=== PATIENT | female | born 1975 | race Caucasian/White ===

== ENCOUNTER 2023-07-03 23:36 | Emergency (ER) | payer BC ==
--- OUTSIDE RECORDS SUMMARY | 2023-07-03 23:46 | XMS REPORT | Continuity of Care Document ---
:1975 Author Organization [facility] t Address [address] [facility] [address] [place] [id number] Care Team Providers Name Role Phone Asked, No Pcp Primary Care Physician Unavailable LUCINDA ALEXANDRE Attending Clinician Unavailable FOG_A_Provider Attending Clinician Unavailable Rochelle Benedict Attending Clinician Unavailable Sana ARMAS, Cara Galan Attending Clinician [phone] Bradly Mccormick NP, Marika Attending Clinician Provider, Unknown Attending Clinician Unavailable Aba ARMAS, Mel Carson Attending Clinician James ARMAS, Spring Guthrie Attending Clinician [phone] Amber SAMUEL, Adelia Medina Attending Clinician Kristopher Beltran DO Attending Clinician VIKI TIAN Attending Clinician Unavailable Viki Ramos Attending Clinician JARRED BLAIR Attending Clinician Unavailable Asael Nichole Attending Clinician NAVDEEP MAGANA Attending Clinician Unavailable Bernabe Loomis Attending Clinician FOG_A_Provider Admitting Clinician Unavailable LUCINDA ALEXANDRE Admitting Clinician Unavailable Payers Payer Name Policy Type Policy Number Effective Date Expiration Date S ource ALLIED BENEFIT [id number] 2019 00:00:00 [facility] [place] [id number] ADVANTAGE (HMO) [facility] [id number] 2021 00:00:00 Problems Condition Condition Condition Status Onset Resolution Last Treating Co mments Source Name Details Category Date Date Treatment Clinician Date 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 To REGEN-COV (monoclon al antibody infusion for COVID-19) Chest pain Chest pain Disease Active U nivers 05-06 ity of 00:00: [address] Branch Epigastric Epigastric Disease Active U nivers pain pain 05-06 ity of 00:00: [address] Branch Drug Drug Disease Active Univers hypersensi hypersensi 05-06 it y of tivity tivity 00:00: [address] Branch Abnormal Abnormal Disease Active Overview: Un yvrose finding on finding on 05-06 Formattin ity of lung lung 00:00: g of this [place] [facility] imaging 00 note Medical might be Branch different from the original. 05/05/21I MPRESSION Interval developme nt of multiple groundgla ss nodules and patchy/no dulargrou ndglass opacities bilateral ly as described above. It is not clear ifreceivi ng antibody cocktail has effected appearanc e and the spread of lungopaci ties in the setting of Covid 19 pneumonia . There are otherdiff erentials in addition to septic emboli and Covid 19 pneumonia , includeva sculitis. A remote possibili ty would be hemorrhag e in the setting ofpulmona ry microembo li. Tetrahydro Tetrahydro Disease Active Overview : Univers cannabinol cannabinol 05-06 Formattin ity of (THC) use (THC) use 00:00: g of this [place] disorder, disorder, 00 note Medi ayden mild, mild, might be Branch abuse abuse different from the original. + UDS on 05/05/21 Morbid Morbid Disease Active Univers obesity obesity 6-18 ity of with body with body [place] mass index 00 Me dical of of Branch 40.0-49.9 40.0-49.9 COVID-19 COVID-19 Disease Active Overview: Un yvrose virus virus 6-18 Formattin ity of infection infection 00:00: g of this [place] 00 note is Medical different Branch from the original. SARS-CoV- 2 NAAT (no units) Date Value Positive (A) Lump or Lump or Disease Active 2017-11 Univers mass in mass in 2-19 ity of breast breast 00:00: [place] 00 Medical Branch Pain Pain Disease Active 2017-11 Univers pelvic pelvic 2- ity of 00:00: [place] 00 Medical Branch Chronic Chronic Disease Active 2017-11 Univers back pain back pain 2-07 ity of 00:00: [place] 00 Medical Branch History of History of Disease Active 2017-11 U nivchristine suicide suicide 2-07 ity of attempt attempt 00:00: [place] 00 Medical Branch NUMBNESS NUMBNESS Diagnosis Active 2016-112017-10-30 Memoria IN LIMBS IN LIMBS 2-13 23:36:00 l Active 00:00: [place] 10/30/2017 00 [facility] Disease Active 2016-11 U deirdre katrina katrina 0-04 ity of management management [place] History of History of Disease Active 2016-11 U gasperers hypertensi hypertensi 0-04 it y of on on 00:00: [place] [facility] Branch History of History of Disease Active 2016-11 U gasperers diabetes diabetes 0-04 ity of mellitus mellitus 00:00: [place] 00 Medical Branch Class 2 Class 2 Disease Active 2016-11 Univers obesity obesity 0-04 ity of due to due to 00:00: [place] excess excess 00 Medical calories calories Branch with with serious serious comorbidit comorbidit y in adult y in adult History of History of Disease Active 2016-11 U gasperers anxiety anxiety 0-04 ity of 00:00: [place] 00 Medical Branch History of History of Disease Active 2016-11 U gasperers depression depression 0-04 it y of 00:00: [place] 00 Medical Branch History of History of Disease Active 2016-11 U nivers hysterecto hysterecto 0-04 it y of my my 00:00: [place] 00 Medical Branch 238.3 - 238.3 - Diagnosis Active 2013-03-20 [facility] 4-18 12:45:00 l EVERT B EVERT B 00:01: [place] Active 00 03/05/2013 OP[facility] [place] 611.72 - 611.72 - Diagnosis Active 2013-02-02 Memoria LUMP OR LUMP OR 2-25 18:13:00 l MASS IN MASS IN 00:01: [place] Active 00 01/12/2013 OP[facility] No known No known Disease Metho di active active st problems problems Hospit a l Diabetes Diabetes Problem Active 2020-07-17 Memoria mellitus mellitus 21:21:48 l (disorder) (disorder) He jazmyn Active Problem 07/17/2020 [facility] Hypertensi Hypertens Problem Active 2020-07-17 Memoria ve katrina 21:21:48 l disorder, disorder, Herm haylee systemic systemic arterial arterial (disorder) (disorder) Active Problem 07/17/2020 April [facility] History of Past Illness Condition Condition Condition Status Onset Resolution Last Treating Co mments Source Name Details Category Date Date Treatment Clinician Date Dorsalgia, Dorsalgia Problem 2016-112017-11-03 2017-11-03 Memoria unspecifie , 2-14 04:41:24 04:41:24 l d unspecifie 06:00: Jose n d 00 10/31/2017 7 [facility] Discharge Discharge Problem 2016-112017-11-03 2017-11-03 Memoria Diagnosis: Diagnosis: 2-14 04:41:24 04:41:24 l CERVICALGI CERVICALGI 06:00: He rmhaylee A A 00 10/31/2017 7 [facility] Allergies, Adverse Reactions, Alerts Allergy Allergy Status Severity Reaction(s) Onset Inactive Treating Comm ents Source Name Type Date Date Clinician BLUEBERR DRUG Active Hives Univers Y INGREDI 6-18 ity of 00:00: [place] 00 Medical Branch [place] Propensi Active Hives Univer s y ty to 6-18 ity of adverse 00:00: [place] reaction 00 Medical s Branch No Known No Known Active Memori a Medicati Medicati l on on [place] Allergie Allergie s s NO KNOWN Drug Active Univers ALLERGIE Class ity of S [facility] [place] [facility] Family History Family Member Diagnosis Comments Start Date Stop Date Source Natural father [facility] Natural mother Hy[facility] Paternal grandfather Colon cancer [facility] Paternal grandfather Diabetes Meth odist [facility] grandmother [facility] Social History Social Habit Start Date Stop Date Quantity Comments Source Gender identity 2022-04-10 Identifies as Method ist 11:10:14 female gender Hospital (finding) Sexual orientation Method ist Hospital History SDOH Hoahaoism Alcohol Frequency Hospita l History SDOH [place] Alcohol Std Drinks Hospit al History SDOH [place] Alcohol Binge Hospital Alcohol intake 2023-06-26 2023-06-26 Current drinker of Me thodist 00:00:00 00:00:00 alcohol (finding) Hospita l History of Social 2023-06-26 2023-06-[address] function 00:00:00 00:00:00 Hospital Tobacco use and 2023-05-30 2023-05-30 Former smokeless Met [facility]odist exposure 00:00:00 00:00:00 tobacco user Hospital Tobacco Comment 2023-05-30 2023-05-30 Quite few years Meth odist 00:00:00 00:00:00 ago Hospital History of tobacco 2023-05-25 Current smoker [facility] use 00:00:00 Hospital Exposure to 2022-10-14 2022-10-24 Not sure University of SARS-CoV-2 (event) 00:00:00 18:53:00 [facility] [place] [facility] Alcohol Comment 2020-11-01 2020-11-01 ocasionally Methodis t 00:00:00 00:00:00 Hospital Cigarettes smoked 2019-04-28 2019-04-28 Univers ity of current (pack per 00:00:00 00:00:00 ) - Reported Branch Sex Ass[birth year] At [birth year] Universit y of 00:00:00 00:00:00 [facility] [place] [facility] Smoking Status Start Date Stop Date Source Ex-smoker 2023-05-30 00:00:00 2023-[facility]-30 [facility] 2019-04-28 [facility] Social History 2017-10-31 08:02:47 [facility] Medications Ordered Filled Start Stop Current Ordering Indication Dosage Frequency Signature Comments Components Source Medication Medication Date Date Medication? Clinician (SIG) Name Name HYDROcodone 2022-0 2022- [place] [id number] 1{tbl} Q4H Take 1 Methodi -acetaminop 7-26 08-[address] hen ([place]) 00:00: 04:59 mouth Hosp donta 10-325 mg 00 :00 every 4 l per tablet (four) hours as needed for moderate pain for up to 10 days .acute pain. Max Daily Amount: 6 tablets rizatriptan 2022-0 Yes 10mg Take 1 Meth yamila (MAXALT) 10 7-14 tablet (10 st MG tablet 15:56: mg total) Hos samantha 35 by mouth l once as needed for migraine. May repeat in 2 hours if unresolved . Do not exceed 30 mg in 24 hours. furosemide 2022-0 Yes 20mg Q.5D Take 1 Metho di (LASIX) 20 7-14 tablet (20 st mg tablet 15:56: mg total) Hos samantha 35 by mouth 2 l (two) times a day. DULoxetine 2022-0 Yes 60mg QD Take 1 Metho di (CYMBALTA) 7-[address] 60 MG 15:56: (60 mg Hospita capsule 35 total) by l mouth daily. atomoxetine 2022-0 Yes 60mg QD Take 1 Meth yamila (STRATTERA) 7-[address] 60 MG 15:56: (60 mg Hospita capsule 35 total) by l mouth daily. cetirizine 2022-0 Yes 10mg QD Take 1 Metho di (ZyrTEC) 10 7-14 tablet (10 st MG tablet 15:56: mg total) Hos samantha 35 by mouth l daily. traZODone 2022-0 Yes 50mg QD Take 1 Method i (DESYREL) 7-14 tablet (50 st 50 MG 15:56: mg total) Hospita tablet 35 by mouth l nightly. HYDROcodone 2022-0 Yes [id number] 1{tbl} Q6H Take 1 M ethodi -acetaminop 7-[address] hen (NORCO) 15:56: mouth Hospi ta 7.5-325 mg 35 every 6 l per tablet (six) hours as needed for moderate pain .acute pain. UNABLE TO Yes Vitamin d3 Me arriaza FIND 05-31 10,[address] 15:56: 250 mcg Hospita [address] fernandez not take the morning of surgery ascorbic Yes Take by Method i acid -[address] (VITAMIN C 15:56: Hospita ORAL) 35 l docosahexae Yes Take by [place] noic 7-[address] acid/epa 15:56: Hospita (FISH OIL 35 l ORAL) methocarbam 2022- No 750mg Q.25D Take 1 M ethodi oL 05-31-[address] (Robaxin-75 00:00: 04:59 (750 mg Ho spita 0) 750 MG 00 :00 total) by l tablet mouth 4 (four) times a day for 30 days. HYDROcodone 2022- [place] [id number] 1{tbl} Q4H Take 1 Methodi -acetaminop 05-[address] rivera ([place]) 00:00: 04:59 mouth Hosp donta 10-325 mg 00 :00 every 4 l per tablet (four) hours as needed for moderate pain for up to 10 days .acute pain. Max Daily Amount: 6 tablets cholecalcif 2022- No Take by [facility] desirae, 05-[address] vitamin D3, 11:46: 00:00 Hospi ta (Vitamin 59 :00 l D3) 10 mcg (400 unit) capsule melatonin 3 2022- No Take by Mt thodi mg tablet 05-[address] 11:36: 00:00 needed for Hospit a 07 :00 sleep. l diphenhydra 2022- No Take by [facility] mine HCl 05-[address] (BENADRYL 11:35: 00:00 needed. Hosp donta ORAL) 16 :00 l fremanezuma Yes INJECT Meth yamila b-vfrm 6- 225MG st (Ajovy 00:00: UNDER THE Hospit a Autoinjecto 00 SKIN EVERY l r) 225 28 DAYS. mg/1.5 mL auto-inject or diazePAM 2022- No 10mg Q6H Take 2 Method i (Valium) 5 6- 06-[address] MG tablet 00:00: 00:00 (10 mg Hospi ta 00 :00 total) by l mouth every 6 (six) hours as needed for anxiety. predniSONE 2022- No 20mg QD Take 1 Meth yamila (DELTASONE) 04-22 06-11 tablet (20 s t 20 mg 00:00: 04:59 mg total) Hospit a tablet 00 :00 by mouth l daily for 5 days. acetaminoph 2021-11 No 1000mg 1,000 mg, Univers en 12-26 Oral, ity of (TYLENOL) 02:00: 01:35 ONCE, 1 [place] tablet 00 :00 dose, On Medical 1,000 mg Wed Branch 10/24/22 at 1999, RADHA ketorolac 2021-11 No 30mg 30 mg, Unive rs (TORADOL) 12-26 Intramuscu ity of injection 02:00: 01:36 lar, ONCE, [place] 30 mg 00 :00 1 dose, On Medical Wed Branch 10/24/22 at 1999, Routine ubrogepant Yes 50mg Take 1 Metho di (Ubrelvy) 8-05 tablet (50 st 50 mg 00:00: mg total) Hospita tablet 00 by mouth l tablet as needed for migraine. fremanezuma 2022- No 225mg Q28D Inject 225 Methodi b-vfrm 225 06-22 06-[address] mg/1.5 mL 00:00: 00:00 the skin Hos samantha auto-inject 00 :00 every 28 l or days. gabapentin 0 Yes 1-2 tabs Met hodi (Neurontin) 2-[address] 600 mg 00:00: times Hospita tablet 00 daily l gabapentin 0 Yes 600mg Take 600 Un yvrose 600 mg 6-22 mg by ity of tablet 13:04: mouth 2 [place] 42 (two) Medical times Branch daily. albuterol Yes [id number] 2{puff} Inhale 2 Univers 90 6-22 Puffs ity of mcg/actuati 00:00: every 6 [place] as on inhaler 00 (six) Medical hours as Branch needed for Wheezing, Shortness of Breath, Bronchospa sm or Chest tightness. pantoprazol Yes [id number] 40mg Take 1 Univers e 40 mg EC 6-22 tablet by ity of tablet 00:00: mouth [place] 00 daily. Medical Branch benzonatate Yes [id number] 200mg Take 1 Univers 200 mg 6-22 capsule by ity of capsule 00:00: mouth 3 [place] 00 (three) Medical times Branch daily as needed for Cough. proMETHazin Yes [id number] 25mg Take 1 Univers e 25 mg 6-22 tablet by ity of tablet 00:00: mouth [place] 00 every 6 Medical (six) Branch hours as needed for Nausea and Vomiting (N/V). diphenhydra Yes Take by Met hodi mine HCl 1-[address] (BENADRYL 19:15: needed. Hospi ta ORAL) 41 l melatonin 3 Yes Take by Met hodi mg tablet 1-[address] 19:15: needed for Hospita 41 sleep. l rizatriptan 2021- No 10mg Take 1 Met hodi (Maxalt) 10 -06 -07 tablet (10 s t MG tablet 00:00: 05:59 mg total) Ho spita 00 :00 by mouth l once as needed for migraine. May repeat in 2 hours if unresolved . Do not exceed 30 mg in 24 hours. fremanezuma 2019-11 Yes 225mg Q28D Inject 225 Methodi b-vfrm 225 2-[address] mg/1.5 mL 00:00: the skin Hosp donta auto-inject 00 every 28 l or days. fremanezuma 2019-11 Yes 225mg Q28D Inject 225 Methodi b-vfrm 225 2-[address] mg/1.5 mL 00:00: the skin Hosp donta auto-inject 00 every 28 l or days. galcanezuma 2019-11 Yes 120mg Q28D Inject 120 Methodi b-gnlm 2-[address] (Emgality 00:00: the skin Hosp donta Pen) 120 00 every 28 l mg/mL pen days. Start with 2 injections then 1 every 28 days gabapentin 2019-11 Yes 1-2 tabs Met hodi (Neurontin) 2-[address] 600 mg 00:00: times Hospita tablet 00 daily l galcanezuma 2019-11- No 120mg Q28D Inject 120 Methodi b-gnlm 2-15 06-[address] (Emgality 00:00: 00:00 the skin Hos samantha Pen) 120 00 :00 every 28 l mg/mL pen days. Start with 2 injections then 1 every 28 days rizatriptan 2019-11- No 10mg Take 1 Met hodi (Maxalt) 10 2-15 12-16 tablet (10 s t MG tablet 00:00: 05:59 mg total) Ho spita 00 :00 by mouth l once as needed for migraine. May repeat in 2 hours if unresolved . Do not exceed 30 mg in 24 hours. hydrOXYzine Yes [id number] 25mg Take 1 Univers 25 mg 4-20 tablet by ity of tablet 00:00: mouth [place] 00 every 6 Medical (six) Branch hours as needed for Itching. Diazepam 2016-11 Yes 2 mg = 1 Mem oria MG Oral 2-14 tab, PO, l Tablet 08:15: TID, X 7 [place] [Valium] 00 day, # 19 tab, 0 Refill(s) Diazepam 2 2016-11 Yes 2 mg = 1 Mem oria MG Oral 2-14 tab, PO, l Tablet 08:15: TID, X 7 [place] [Valium] 00 day, # 19 tab, 0 Refill(s) Diazepam 2 2016-11 Yes 2 mg = 1 Mem oria MG Oral 2-14 tab, PO, l Tablet 08:15: TID, X 7 [place] [Valium] 00 day, # 19 tab, 0 Refill(s) Diazepam 2 2016-11 Yes 2 mg = 1 Mem oria MG Oral 2-14 tab, PO, l Tablet 08:15: TID, X 7 [place] [Valium] 00 day, # 19 tab, 0 Refill(s) Diazepam 2 2016-11 Yes 2 mg = 1 Mem oria MG Oral 2-14 tab, PO, l Tablet 08:15: TID, X 7 [place] [Valium] 00 day, # 19 tab, 0 Refill(s) Diazepam 2 2016-11 Yes 2 mg = 1 Mem oria MG Oral 2-14 tab, PO, l Tablet 08:15: TID, X 7 [place] [Valium] 00 day, # 19 tab, 0 Refill(s) Diazepam 2 2016-11 Yes 2 mg = 1 Mem oria MG Oral 2-14 tab, PO, l Tablet 08:15: TID, X 7 [place] [Valium] 00 day, # 19 tab, 0 Refill(s) Diazepam 2 2016-11 Yes 2 mg = 1 Mem oria MG Oral 2-14 tab, PO, l Tablet 08:15: TID, X 7 [place] [Valium] 00 day, # 19 tab, 0 Refill(s) Diazepam 2 2016-11 Yes 2 mg = 1 Mem oria MG Oral 2-14 tab, PO, l Tablet 08:15: TID, X 7 [place] [Valium] 00 day, # 19 tab, 0 Refill(s) Diazepam 2 2016-11 Yes 2 mg = 1 Mem oria MG Oral 2-14 tab, PO, l Tablet 08:15: TID, X 7 [place] [Valium] 00 day, # 19 tab, 0 Refill(s) Acetaminoph 2016-11 Yes 1 tab, PO, Memoria en 300 MG / 2-14 Q6H, PRN l Codeine 08:14: Pain, X 3 [place] nn Phosphate 00 day, # 13 30 MG Oral tab, 0 Tablet Refill(s) [Tylenol with Codeine #3] Acetaminoph 2016-11 Yes 1 tab, PO, Memoria en 300 MG / 2-14 Q6H, PRN l Codeine 08:14: Pain, X 3 [place] nn Phosphate 00 day, # 13 30 MG Oral tab, 0 Tablet Refill(s) [Tylenol with Codeine #3] Acetaminoph 2016-11 Yes 1 tab, PO, Memoria en 300 MG / 2-14 Q6H, PRN l Codeine 08:14: Pain, X 3 [place] nn Phosphate 00 day, # 13 30 MG Oral tab, 0 Tablet Refill(s) [Tylenol with Codeine #3] Acetaminoph 2016-11 Yes 1 tab, PO, Memoria en 300 MG / 2-14 Q6H, PRN l Codeine 08:14: Pain, X 3 [place] nn Phosphate 00 day, # 13 30 MG Oral tab, 0 Tablet Refill(s) [Tylenol with Codeine #3] Acetaminoph 2016-11 Yes 1 tab, PO, Memoria en 300 MG / 2-14 Q6H, PRN l Codeine 08:14: Pain, X 3 [place] nn Phosphate 00 day, # 13 30 MG Oral tab, 0 Tablet Refill(s) [Tylenol with Codeine #3] Acetaminoph 2016-11 Yes 1 tab, PO, Memoria en 300 MG / 2-14 Q6H, PRN l Codeine 08:14: Pain, X 3 [place] nn Phosphate 00 day, # 13 30 MG Oral tab, 0 Tablet Refill(s) [Tylenol with Codeine #3] Acetaminoph 2016-11 Yes 1 tab, PO, Memoria en 300 MG / 2-14 Q6H, PRN l Codeine 08:14: Pain, X 3 [place] nn Phosphate 00 day, # 13 30 MG Oral tab, 0 Tablet Refill(s) [Tylenol with Codeine #3] Acetaminoph 2016-11 Yes 1 tab, PO, Memoria en 300 MG / 2-14 Q6H, PRN l Codeine 08:14: Pain, X 3 [place] nn Phosphate 00 day, # 13 30 MG Oral tab, 0 Tablet Refill(s) [Tylenol with Codeine #3] Acetaminoph 2016-11 Yes 1 tab, PO, Memoria en 300 MG / 2-14 Q6H, PRN l Codeine 08:14: Pain, X 3 [place] nn Phosphate 00 day, # 13 30 MG Oral tab, 0 Tablet Refill(s) [Tylenol with Codeine #3] Acetaminoph 2016-11 Yes 1 tab, PO, Memoria en 300 MG / 2-14 Q6H, PRN l Codeine 08:14: Pain, X 3 [place] nn Phosphate 00 day, # 13 30 MG Oral tab, 0 Tablet Refill(s) [Tylenol with Codeine #3] Motrin 600 2016-11 Yes 600 mg = 1 M emoria mg oral 2-14 tab, PO, l tablet 08:13: Q6H, PRN [place] 00 Pain, take with food, # 30 tab, 0 Refill(s) Motrin 600 2016-11 Yes 600 mg = 1 M emoria mg oral 2-14 tab, PO, l tablet 08:13: Q6H, PRN [place] 00 Pain, take with food, # 30 tab, 0 Refill(s) Motrin 600 2016-11 Yes 600 mg = 1 M emoria mg oral 2-14 tab, PO, l tablet 08:13: Q6H, PRN [place] 00 Pain, take with food, # 30 tab, 0 Refill(s) Motrin 600 2016-11 Yes 600 mg = 1 M emoria mg oral 2-14 tab, PO, l tablet 08:13: Q6H, PRN [place] 00 Pain, take with food, # 30 tab, 0 Refill(s) Motrin 600 2016-11 Yes 600 mg = 1 M emoria mg oral 2-14 tab, PO, l tablet 08:13: Q6H, PRN [place] 00 Pain, take with food, # 30 tab, 0 Refill(s) Motrin 600 2016-11 Yes 600 mg = 1 M emoria mg oral 2-14 tab, PO, l tablet 08:13: Q6H, PRN [place] 00 Pain, take with food, # 30 tab, 0 Refill(s) Motrin 600 2016-11 Yes 600 mg = 1 M emoria mg oral 2-14 tab, PO, l tablet 08:13: Q6H, PRN [place] 00 Pain, take with food, # 30 tab, 0 Refill(s) Motrin 600 2016-11 Yes 600 mg = 1 M emoria mg oral 2-14 tab, PO, l tablet 08:13: Q6H, PRN [place] 00 Pain, take with food, # 30 tab, 0 Refill(s) Motrin 600 2016-11 Yes 600 mg = 1 M emoria mg oral 2-14 tab, PO, l tablet 08:13: Q6H, PRN [place] 00 Pain, take with food, # 30 tab, 0 Refill(s) Motrin 600 2016-11 Yes 600 mg = 1 M emoria mg oral 2-14 tab, PO, l tablet 08:13: Q6H, PRN [place] 00 Pain, take with food, # 30 tab, 0 Refill(s) Immunizations Ordered Filled Immunization Date Status Comments Sourc e Immunization Name Name TDAP 2017-08-21 Completed [facility] 00:00:00 [facility] [place] [facility] Vital Signs Vital Name Observation Time Observation Value Comments Source Systolic blood 2022-10-25 00:55:00 146 mm[Hg] [facility] Diastolic blood 2022-10-25 00:55:00 86 mm[Hg] [facility] Heart rate 2022-10-25 00:55:00 88 /min [facility] Body temperature 2022-10-25 00:55:[address] [facility] Res[facility] rate 2022-10-25 00:55:00 20 /min [facility] Body height 2022-10-25 00:55:00 170.2 cm [facility] Body weight 2022-10-25 00:55:00 108.863 kg [facility] BMI 2022-10-25 00:55:00 37.59 kg/m2 [facility] Oxygen saturation in 2022-10-25 00:55:00 96 /min [facility] Arterial blood by [facility] Pulse oximetry [place] Heart rate 2023-05-31 19:59:00 78 /min [facility] Respiratory rate 2023-05-31 18:59:00 20 /min [facility] Systolic blood 2023-05-31 17:30:55 112 mm[Hg] Method [facility] pressure Diastolic blood 2023-05-31 17:30:55 67 mm[Hg] [facility] pressure Body temperature 2023-05-31 17:30:[address] [facility] Oxygen saturation in 2023-05-31 17:30:55 98 /min [facility] Arterial blood by Pulse oximetry Body height 2023-05-30 15:48:00 170.2 cm [facility] Body weight 2023-05-30 15:48:00 115.667 kg [facility] BMI 2023-05-30 15:48:00 39.94 kg/m2 [facility] Systolic (mm Hg) 2017-10-31 08:03:00 Freddie rial [place] Diastolic (mm Hg) 2017-10-31 08:03:00 Mem orial [place] Respitory Rate 2017-10-31 08:03:00 Yumiko rodriguez [place] Temperature Oral (F) 2017-10-31 08:03:00 98.2 F [facility] [place] Temperature Oral (F) 2017-10-31 02:09:00 98.1 F [facility] [place] Weight 2017-10-31 02:09:00 Memorial [place] Heart Rate 2017-10-31 02:09:00 [facility] [place] Systolic (mm Hg) 2017-10-31 02:09:00 Freddie rial [place] Diastolic (mm Hg) 2017-10-31 02:09:00 Mem orial [place] Respitory Rate 2017-10-31 02:09:00 Memori al [place] Procedures Procedure Date / Time Performing Clinician Source Performed MRI CERVICAL SPINE WO 2023-06-27 16:45:00 Anuj [facility] CONTRAST XR LUMBAR SPINE 2 OR 3 VW 2023-06-21 18:24:[address] [facility] [place] [place] BASIC METABOLIC PANEL 2023-05-31 11:47:00 [facility] WITH PLATELET AND 2023-05-31 11:47:00 [facility] DIFFERENTIAL Kwanbena ESTIMATED GFR 2023-05-31 11:47:00 [facility] HEMOGLOBIN 2023-05-31 11:46:00 [facility] [place] POC GLUCOSE 2023-05-31 01:25:00 [facility] [place] > 1 HOUR 2023-05-31 00:30:[address] [facility] [place] [place] > 1 HOUR 2023-05-30 22:50:[address] [facility] [place] [place] ARTERIAL LINE 2023-05-30 21:53:51 Wiley Patel spital ANESTHESIA INTUBATION 2023-05-30 21:08:00 Jorge [facility] FUSION,LUMBAR,XLIF,WITH 2023-05-30 21:00:00 Anuj [facility] POSTERIOR FUSION HC NERVE BLOCK ERECTOR 2023-05-30 19:11:14 Davion Cruz [facility] SPINAE SURGICAL PATHOLOGY REQUEST 2023-05-30 13:37:00 [facility] ECG PRE/POST OP 2023-05-15 16:33:49 [facility] 2023-05-15 16:26:00 [facility]INALYSIS SCREEN AND 2023-05-15 16:26:00 [facility], WITH REFLEX TO CULTURE CBC WITH PLATELET AND 2023-05-15 16:00:00 [facility] DIFFERENTIAL COMPREHENSIVE METABOLIC 2023-05-15 16:00:00 [facility] HEMOGLOB[facility] A1C 2023-05-15 16:00:00 [facility] ESTIMATED GFR 2023-05-15 16:00:00 [facility] PARTIAL THROMBOPLASTIN 2023-05-15 16:00:00 [facility] TIME (PTT) PROTHROMBIN TIME WITH INR 2023-05-15 16:00:00 [facility] XR SPINE SCOLIOSIS 2-3 2023-05-07 18:14:46 [facility] VIEWS XR LUMBAR SPINE AP LATERAL 2023-05-07 18:13:05 [facility] FLEXION AND EXTENSION CT LUMBAR SPINE WO 2023-05-07 17:44:35 [facility] CONTRAST MRI LUMBAR SPINE W WO 2023-04-25 04:39:00 [facility] CONTRAST [place] TYPE AND SCREEN 2023-04-25 00:17:00 [facility] [place] COMPREHENSIVE METABOLIC 2023-04-24 21:46:00 [facility] PANEL [place] CBC WITH PLATELET AND 2023-04-24 21:46:[address] [facility] DIFFERENTIAL [place] PROTHROMBIN TIME WITH INR 2023-04-24 21:46:00 [facility] [place] PARTIAL THROMBOPLASTIN 2023-04-24 21:46:00 [facility] TIME (PTT) [place] ESTIMATED GFR 2023-04-24 21:46:00 Thanhdung Zacarias [facility] [place] XR LUMBAR SPINE 2 OR 3 VW 2023-04-23 00:29:26 Kristopher Beltran [facility] XR KNEE 1 OR 2 VW RIGHT 2023-04-23 00:29:10 Kristopher Beltran [facility] XR KNEE 1 OR 2 VW LEFT 2023-04-23 00:28:51 Kristopher Beltran [facility] MRI SPINE EXTERNAL STUDY 2023-02-15 17:15:00 Lucinda Alexandre [facility] NOTICE OF PRIVACY 2022-10-25 00:40:30 Doctor Unassigned, [facility] PRACTICES [facility] CONSENT/REFUSAL FOR 2022-10-25 00:38:39 Doctor Unassigned, [facility] DIAGNOSIS AND TREATMENT [facility] Cholecystectomy [facility] Hernia repair [facility] Plan of Care Planned Activity Planned Date Details Comments Source Future Scheduled 2023-07-01 Screening for [facility] Test 14:43:38 malignant neoplasm of colon (procedure) [code = 741137845] Future Scheduled 2023-07-01 Screening for [facility] Test 14:43:38 malignant neoplasm of colon (procedure) [code = 065952875] Future Scheduled 2023-07-01 Screening for [facility] Test 14:43:38 malignant neoplasm of colon (procedure) [code = 695230044] Future Scheduled 2023-07-01 COVID-19 VACCINE [facility] Test 14:43:38 (#1) [code = COVID-19 VACCINE (#1)] Future Scheduled 2023-07-01 Hepatitis C [facility]ital Test 14:43:38 screening (procedure) [code = 380052537] Future Scheduled 2023-07-01 Screening for [facility] Test 14:43:38 malignant neoplasm of cervix (procedure) [code = 867291347] Future Scheduled 2023-07-01 BREAST CANCER [facility] Test 14:43:38 SCREENING [code = BREAST CANCER SCREENING] Future Scheduled 2023-07-01 Screening for [facility] Test 14:43:38 malignant neoplasm of colon (procedure) [code = 025204806] Future Scheduled 2023-07-01 Screening for [facility] Test 14:43:38 malignant neoplasm of colon (procedure) [code = 932806254] Future Scheduled 2023-07-01 [facility] 14:43:38 [code = INFLUENZA VACCINE] Future Scheduled 2021-09-20 [facility] Test 18:04:01 (1) [code = COVID-19 VACCINE (1)] Future Scheduled 2021-09-20 [facility] Test 18:04:01 screening (procedure) [code = 972459992] Future Scheduled 2021-09-20 [facility] Test 18:04:01 malignant neoplasm of cervix (procedure) [code = 650624756] Future Scheduled 2021-09-20 [facility]ACCINE [facility] Test 18:04:01 [code = INFLUENZA VACCINE] Encounters Start End Encounter Admission Attending Care Care Encounter Source Date/Time Date/Time Type Type Clinicians Facility Department ID 2021-09-18 Emergency [facility] [id number] Univers 02:06:51 ity [facility] 2021-09-18 Emergency [facility] [id number] Univers 00:47:15 ity [facility] 2021-09-14 Emergency [facility] [id number] Univers 23:52:15 ity [facility] 2021-09-14 Emergency [facility] [id number] Univers [facility] 2023-06-27 2023-06-27 [facility] ANUJLUCINDA SOLANO [facility] [id number] [place] 00:00:00 00:00:[address] 2023-06-21 2023-06-21 [facility] Lucinda Alexandre 1.2.840.1 [id number] 2 [id number] Methodi 12:45:00 23:59:00 Encounter Amadou 98184.1.[address] 3.430.2.7 Hospit a .3.547596 l .8 2023-06-21 2023-06-21 Office AnujLucinda solano 1.2.840.1 [id number] 21 [id number] [facility]i 14:45:00 15:11:22 Visit Amadou 58458.1.[address] 3.430.2.7 Hospit a .3.131197 l .8 2023-06-21 2023-06-21 Outpatient LUCINDA ALEXANDRE [facility] [id number] [place] 00:00:00 00:00:[address] 2023-06-21 2023-06-21 Outpatient LUCINDA ALEXANDRE [facility] [id number] [place] 00:00:00 00:00:[address] 2023-06-19 2023-06-19 Orders Lucinda Alexandre 1.2.840.1 [id number] 21 [id number] Methodi 00:00:00 00:00:00 Only Amadou 27276.1.[address] 3.430.2.7 Hospit a .3.941929 l .8 2023-06-12 2023-06-12 Orders Lucinda Alexandre 1.2.840.1 [id number] 21 [id number] [facility]i 00:00:00 00:00:00 Only Amadou 37942.1.[address] 3.430.2.7 Hospit a .3.023770 l .8 2023-06-04 2023-06-04 Outpatient FOG_A_Provi AOSM AOSM 656 [id number] Tonie 00:00:00 00:00:00 fabrizio [id number] Orthop e dic [facility] e 2023-06-03 2023-06-03 Patient Jak, 1.2.840.1 [id number] [facility]i 00:00:00 00:00:00 Outreach Rochelle 66824.1.1 278 s t 3.430.2.7 Hospit a .3.115326 l .8 2023-05-30 2023-05-31 Hospital Lucinda Alexandre 1.2.840.1 [id number] 2 [id number] Methodi 10:22:00 15:56:00 Encounter Amadou 81737.1.[address] 3.430.2.7 Hospit a .3.789597 l .8 2023-05-30 2023-05-31 Inpatient LUCINDA ALEXANDRE [facility] Hos [id number] [place] 00:00:00 00:00:[address] 2023-05-30 2023-05-30 Anesthesia Cara Hood 1.2.840 .1 [id number] [facility] 16:00:00 20:22:00 Event Bradly Mccormick Marika 97113.1.[address] 3.430.2.7 Hospit a .3.268413 l .8 2023-05-30 2023-05-30 Surgery Lucinda Alexandre 1.2.840.1 [id number] 21 [id number] Methodi 12:35:00 16:35:[address] 3.430.2.7 Hospit a .3.958821 l .8 2023-05-16 2023-05-16 Documentat Provider, 1.2.840.1 [id number] 2 [id number] Methodi 00:00:00 00:00:00 ion María 22879.1.[address] 3.430.2.7 Hospit a .3.250437 l .8 2023-05-15 2023-05-15 Pre-Admiss Lucinda Alexandre 1.2.840.1 [id number] Methodi 11:00:00 12:00:00 ion Amadou 73160.1.[address] Testing 3.430.2.7 Hospit a .3.579498 l .8 2023-05-15 2023-05-15 Outpatient LUCINDA ALEXANDRE [facility] [id number] [place] 00:00:00 00:00:[address] 2023-05-12 2023-05-12 Zoila Deluna 1.2.840.1 [id number] Methodi 00:00:00 00:00:00 Mel Carson 95973.1.[address] 3.430.2.7 Hospit a .3.811211 l .8 2023-05-07 2023-05-07 Hospital Lucinda Alexandre 1.2.840.1 [id number] 2 [id number] Methodi 12:15:00 23:59:00 Encounter Amadou 56502.1.[address] 3.430.2.7 Hospit a .3.699988 l .8 2023-05-07 2023-05-07 Office Lucinda Alexandre 1.2.840.1 [id number] 21 [id number] Methodi 14:30:00 15:12:14 Visit Amadou 48882.1.[address] 3.430.2.7 Hospit a .3.115999 l .8 2023-05-07 2023-05-07 [facility] Lucinda Alexandre 1.2.840.1 [id number] 2 [id number] Methodi 12:00:00 12:14:00 Encounter Amadou 80457.1.[address] 3.430.2.7 Hospit a .3.352802 l .8 2023-05-07 2023-05-07 [facility] Lucinda Alexandre 1.2.840.1 [id number] 2 [id number] Methodi 11:25:57 11:59:00 Encounter Amadou 76143.1.[address] 3.430.2.7 Hospit a .3.507704 l .8 2023-05-07 2023-05-07 Outpatient ANUJ, LUCINDA [facility] [id number] [place] 00:00:00 00:00:[address] 2023-05-07 2023-05-07 Outpatient ANUJLUCINDA [facility] [id number] [id number] [place] 00:00:00 00:00:[address] 2023-05-07 2023-05-07 Outpatient ANUJ, LUCINDA [facility] [id number] [place] 00:00:00 00:00:[address] 2023-05-07 2023-05-07 Outpatient ANUJ, LUCINDA [facility] [id number] [place] 00:00:00 00:00:[address] 2023-04-24 2023-04-25 Emergency James, 1.2.840.1 [id number] Methodi 15:30:00 03:07:[address] [place] 3.430.2.7 Hospit a .3.358572 l .8 2023-04-24 2023-04-25 [facility] [id number] 555 [place] 00:00:00 00:00:00 SPRING [address] 2023-04-24 2023-04-24 Travel 1.2.840.1 1.2.410.083 8273 [id number] Methodi 00:00:00 00:00:[address] 3.430.2.7 0.2.7.3.698 Ho spita .3.894844 084.8 l .8 2023-04-24 2023-04-24 Documentat Amber, 1.2.840.1 [id number] 2 [id number] Methodi 00:00:00 00:00:[address] girish Medina [address]001.1.[address] 3.430.2.7 Hospit a .3.335616 l .8 2023-04-22 2023-04-22 [facility], 1.2.840.1 [id number] 2099 [id number] Methodi 17:48:00 21:06:00 Kristopher Anderson 71639.1.[address] 3.430.2.7 Hospit a .3.888688 l .8 2023-04-22 2023-04-22 [facility] [id number] [place] [address] 00:00:00 00:00:[address]RI[address]HER [address] 2023-04-22 2023-04-22 Travel 1.2.840.1 1.2.261.563 0332 [id number] Methodi 00:00:00 00:00:[address] 3.430.2.7 0.2.7.3.698 Ho spita .3.040117 084.8 l .8 2023-04-16 2023-04-16 [facility] Lucinda Alexandre 1.2.840.1 [id number] 2 [id number] Methodi 13:35:45 23:59:00 Encounter Amadou 11287.1.[address] 3.430.2.7 Hospit a .3.283983 l .8 2023-04-16 2023-04-16 [facility] Lucinda Alexandre 1.2.840.1 [id number] 21 [id number] Methodi 12:00:00 13:32:33 Visit Amadou 91584.1.[address] 3.430.2.7 Hospit a .3.995184 l .8 2023-04-16 2023-04-16 Outpatient LUCINDA ALEXANDRE [facility] [id number] [place] 00:00:00 00:00:[address] 2023-04-16 2023-04-16 Outpatient LUCINDA ALEXANDRE [facility] [id number] [place] 00:00:00 00:00:[address] 2023-04-16 2023-04-16 Travel 1.2.840.1 1.2.731.565 9751 [id number] Methodi 00:00:00 00:00:[address] 3.430.2.7 0.2.7.3.698 Ho spita .3.182708 084.8 l .8 2023-04-08 2023-04-08 Travel 1.2.840.1 1.2.776.108 5631 386771 Methodi 00:00:00 00:00:[address] 3.430.2.7 0.2.7.3.698 Ho spita .3.405488 084.8 l .8 2023-04-02 2023-04-02 Travel 1.2.840.1 1.2.258.869 7475 165794 Methodi 00:00:00 00:00:[address] 3.430.2.7 0.2.7.3.698 Ho spita .3.781796 084.8 l .8 2022-10-24 2022-10-24 Emergency X RIDDLE, [facility] ERT [id number] Univers 18:57:00 20:04:00 VIKI [facility]es [facility] 2022-10-24 2022-10-24 Emergency [place], [facility] 1.2.925.[id number] [facility] 18:57:00 20:04:00 Viki GLORIA 350.1.13.10 AshtynCLEARSKY [facility] 4.2.7.2.686 [facility] [id number] [place] [address] [place] 2022-06-22 2022-06-22 Outpatient ABA [facility] [id number] [place] 00:00:00 00:00:00 MEL 647 Method i 2021 2021 Outpatient R JOHNNIE [facility] [id number] Univers 15:30:00 15:30:00 JARRED [facility] 2020-12-06 2020-12-06 Outpatient R [facility] [id number] Univers 14:15:00 14:15:00 [facility] 2020-11-01 2020-11-01 Outpatient ABA [facility] [id number] [place] 00:00:00 00:00:00 MEL 985 Method i 2020-11-01 2020-11-01 Outpatient ABA [facility] [id number] [place] 00:00:00 00:00:00 MEL 111 Method i 2020-07-15 2020-07-15 Ambulatory nullFlavo MNA [id number] [facility] 15:30:00 15:30:00 Pre-Reg r Neurology 00 l [place] 2020-07-15 2020-07-15 Ambulatory nullFlavo MNA [id number] [facility] 15:30:00 15:30:00 Pre-Reg r Neurology 00 l [place] 2020-07-15 2020-07-15 Outpatient MHIE MHIE [id number] [facility] 10:30:00 10:30:00 00 l [place] 2020-07-15 2020-07-15 [id number] 10:30:00 10:30:00 Asael 00 Fran 2020-05-17 2020-05-17 Outpatient R [place], [facility] [id number] Univers 09:30:00 09:30:00 NAVDEEP [facility] 2020-03-07 2020-03-07 Outpatient R [facility] [id number] Univers 16:40:00 16:40:00 [facility] 2020-02-07 2020-02-07 Outpatient R [facility] [id number] Univers 15:45:00 15:45:00 [facility] 2017-10-31 2017-10-31 Emergency nullFlavo [facility] [id number] [facility] 01:46:00 08:57:00 r Kareem 00 l [facility] 2017-10-31 2017-10-31 Emergency [facility] [id number] Mem[facility] 01:46:00 08:57:00 r Kareem 00 l [facility] 2017-10-30 2017-10-31 Out[id number] 19:46:00 02:57:00 Daeun 00 2016-05-10 2016-05-11 Inpatient [facility] [id number] [place] [address] 00:00:00 00:00:[address] 2013-03-05 2013-03-05 OD MHIE MHIE [id number] [facility] 10:15:00 23:59:00 02 [place] 2013-03-05 2013-03-05 OD MHIE MHIE [id number] [facility] 10:15:00 23:59:00 02 Kareem 2013-01-21 2013-01-21 Outpatient MHIE MHIE [id number] [facility] 07:58:00 23:59:00 01 [place] 2013-01-21 2013-01-21 Outpatient MHIE MHIE [id number] [facility] 07:58:00 23:59:00 01 [place] Results Test Description Test Time Test Comments Results Result Comments Source Surgical pathology request 2023-06-07 20:01:52 Test Item Value Reference Range Interpretation Comme nts Case number (test code = [id number]) [id number] Surgical pathology report (test code = See link below for PDF Lab R eport 0742) Result status (test code = 7261803) This is Final Report for [id number] [facility] [id number] 01:27:00 Test Item Value Reference Range Interpretation Comments POC glucose (test code = 120 mg/dL 65-99 H Ope rator Name: Leydi [id number] Toro ID: [id number] able: [facility] 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 Interpretation (test Abnormal code = 69359-9) [facility] Pre/Post [id number] 17:51:36 Test Item Value Reference Range Interpretation Comments Ventricular rate (test 87 code = 253) Atrial rate (test code 87 = 255) LA interval (test code 170 = 266) QRSD interval (test 86 code = 260) QT interval (test code 378 = 264) QTC interval (test code 454 = 265) P axis 1 (test code = 55 267) QRS axis 1 (test code = -42 268) T wave axis (test code 44 = 270) EKG impression (test Normal sinus code = 273) rhythm-Possible Left atrial enlargement-Left axis deviation-Left ventricular hypertrophy ( R in aVL , Reji product )-Possible Lateral infarct , age undetermined-Abnormal ECG-In automated comparison with ECG of 09-MAY-2016 20:41,-Borderline criteria for Lateral infarct are now present- [facility] [id number] 17:32:00 Test Item Value Reference Range Interpretation Comments Urine culture (test SEE COMMENT Bacteriu mara screen code = 3220897) negative. [facility] [id number] 02:36:00 Test Item Value Reference Range Interpretation Comments eGFR (test code = eGFR) 72 [facility]2017-12-14 02:36:00 Test Item Value Reference Range Interpretation Comments ALANINE AMINOTRANSFERASE 55 See_Comment [A utomated message] (test code = ALANINE The sys tem which AMINOTRANSFERASE) generated this result transmitted ref erence range: <=65. Th e reference range was not used to int erpret this result as normal/abnormal . [facility]2017-12-14 02:36:00 Test Item Value Reference Range Interpretation Comments Alk Phos (test code = Alk Phos) 71 39-136 [facility]2017-12-14 02:36:00 Test Item Value Reference Range Interpretation Comments Albumin Lvl (test code = Albumin Lvl) 3.8 3.5-5.0 [facility]2017-12-14 02:36:00 Test Item Value Reference Range Interpretation Comments ASPARTATE TRANSAMINASE 33 See_Comment [Aut omated message] (test code = ASPARTATE The s ystem which TRANSAMINASE) generated this result transmitted ref erence range: <=37. Th e reference range was not used to interpr et this result as normal/abnormal . [facility] [id number] 02:36:00 Test Item Value Reference Range Interpretation Comments Bili Total (test code = Bili Total) 0.2 0.2-1.3 [facility]2017-12-14 02:36:00 Test Item Value Reference Range Interpretation Comments Potassium Lvl (test code = Potassium 4.2 3.5-5.1 Lvl) [facility]2017-12-14 02:36:00 Test Item Value Reference Range Interpretation Comments Calcium Lvl (test code = Calcium Lvl) 9.1 8.5-10.5 [facility]2017-12-14 02:36:00 Test Item Value Reference Range Interpretation Comments CO2 (test code = CO2) 31 24-32 [facility]2017-12-14 02:36:00 Test Item Value Reference Range Interpretation Comments Chloride Lvl (test code = Chloride Lvl) 103 95-109 [facility]2017-12-14 02:36:00 Test Item Value Reference Range Interpretation Comments Total Protein (test code = Total 7.3 6.4-8.4 Protein) [facility]2017-12-14 02:36:00 Test Item Value Reference Range Interpretation Comments BUN (test code = BUN) 16 - [facility]2017-12-14 02:36:00 Test Item Value Reference Range Interpretation Comments Glucose Lvl (test code = Glucose Lvl) 99 70-99 [facility]2017-12-14 02:36:00 Test Item Value Reference Range Interpretation Comments Sodium Lvl (test code = Sodium Lvl) 137 135-145 [facility]2017-12-14 02:36:00 Test Item Value Reference Range Interpretation Comments Creatinine Lvl (test code = Creatinine 0.99 0.50-1.40 Lvl) [facility]2017-12-14 02:36:00 Test Item Value Reference Range Interpretation Comments AGAP (test code = AGAP) 7.2 10.0-20.0 [facility]2017-12-14 02:36:00 Test Item Value Reference Range Interpretation Comments B/C Ratio (test code = B/C Ratio) 16 6-25 [facility]2017-12-14 02:36:00 Test Item Value Reference Range Interpretation Comments A/G Ratio (test code = A/G Ratio) 1.1 0.7-1.6 [facility]2017-12-14 02:36:00 Test Item Value Reference Range Interpretation Comments Globulin (test code = Globulin) 3.5 2.7-4.[address] [facility], [id number] 02:36:00 Test Item Value Reference Range Interpretation Comments Segs (test code = Segs) 69.2 45.0-75.[address] [facility], TXAeddbgoEPJJJFQSYZ2309-20-35 02:36:00 Test Item Value Reference Range Interpretation Comments Monocytes (test code = Monocytes) 6.3 2.0-12.[address] [facility], TXCfdooobBBXSTIHGPZ4543-47-43 02:36:00 Test Item Value Reference Range Interpretation Comments Lymphocytes (test code = Lymphocytes) 22.8 20.0-40.[address] [facility], TXYxsmnnaTVQMVQTFHQ8545-27-16 02:36:00 Test Item Value Reference Range Interpretation Comments Basophils (test code = 0.5 See_Comment [Aut omated message] The Basophils) system which ge nerated this result tra nsmitted reference range : <=1.0. The reference r kishan was not used to int erpret this result as normal/abnormal . [facility], TXRxkyzysMZJKMPVWCP6175-63-71 02:36:00 Test Item Value Reference Range Interpretation Comments Basophils # (test code 0.1 See_Comment [Aut omated message] The = Basophils #) system which generated this result tra nsmitted reference range : <=0.2. The reference r kishan was not used to int erpret this result as normal/abnormal . [facility], TXLxkzakuOQSWCGXMJI2491-32-83 02:36:00 Test Item Value Reference Range Interpretation Comments Lymphocytes # (test code = Lymphocytes 2.7 1.0-5.5 #) [facility], TXMstlqfzFYPLWOXWPK3147-24-27 02:36:00 Test Item Value Reference Range Interpretation Comments Segs-Bands # (test code = Segs-Bands #) 8.1 1.5-8.[address] [facility], TXBemvgusVBLXYEMVGV0815-92-43 02:36:00 Test Item Value Reference Range Interpretation Comments Monocytes # (test code 0.7 See_Comment [Aut omated message] The = Monocytes #) system which generated this result tra nsmitted reference range : <=0.8. The reference r kishan was not used to int erpret this result as normal/abnormal . [place] [address]-12-14 02:36:00 Test Item Value Reference Range Interpretation Comments Eosinophils (test code = 1.2 See_Comment [A utomated message] The Eosinophils) system which ge nerated this result tra nsmitted reference range : <=4.0. The reference r kishan was not used to int erpret this result as normal/abnormal . [facility], TXJsxopxxWIISWBZEKW8887-10-49 02:36:00 Test Item Value Reference Range Interpretation Comments Eosinophils # (test code 0.1 See_Comment [A utomated message] The = Eosinophils #) system whic h generated this result tra nsmitted reference range : <=0.5. The reference r kishan was not used to int erpret this result as normal/abnormal . [facility], TXGxgpkfxNVZSUYAPVQ1568-81-10 02:36:00 Test Item Value Reference Range Interpretation Comments MCHC (test code = MCHC) 33.5 32.0-36.[address] [facility], TXKlkgyilCUNAJLAIYR6491-76-64 02:36:00 Test Item Value Reference Range Interpretation Comments RDW (test code = RDW) 13.2 11.5-14.[address] [facility], TXNntaojsRXHMPQSJIO9400-42-22 02:36:00 Test Item Value Reference Range Interpretation Comments Platelet (test code = Platelet) 239 133-[address] [facility], TXAawyuhhYBNJIGXCZF5851-78-80 02:36:00 Test Item Value Reference Range Interpretation Comments MPV (test code = MPV) 9.0 7.4-10.[address] [facility], TXYdnmgyhHDMQZMYCNZ0828-51-67 02:36:00 Test Item Value Reference Range Interpretation Comments Hgb (test code = Hgb) 14.8 12.0-16.[address] [facility], TXPsvrhasEYFWUZVIFH8323-37-95 02:36:00 Test Item Value Reference Range Interpretation Comments RBC X 10x6 (test code = RBC X 10x6) 4.92 4.20-5.[address] [facility], TXCfjvflgDULPDYANVD7002-98-53 02:36:00 Test Item Value Reference Range Interpretation Comments Hct (test code = Hct) 44.2 36.0-48.[address] [facility] [place], TXIltxjzxNRXMBNPSNX7871-80-75 02:36:00 Test Item Value Reference Range Interpretation Comments MCV (test code = MCV) 89.8 80.0-98.[address] [facility] [place], TXGlvavbeFRVEHSVNOF0712-69-67 02:36:00 Test Item Value Reference Range Interpretation Comments WBC X 10x3 (test code = WBC X 10x3) 11.7 3.7-10.4 [facility]12[facility]-47 02:36:00 Test Item Value Reference Range Interpretation Comments MCH (test code = MCH) 30.1 pg 27.0-31.0 [facility] AND [id number] 02:36:00 Test Item Value Reference Range Interpretation Comments UA Color (test code = Yellow *NA*(10/30/17 UA Color) 8:36 PM) [facility] AND [id number] 02:36:00 Test Item Value Reference Range Interpretation Comments UA Turbidity (test code = Clear (10/30/17 8:36 UA Turbidity) PM) [facility] AND [id number] 02:36:00 Test Item Value Reference Range Interpretation Comments UA Spec Grav (test code = UA Spec 1.010 1 Grav) [facility] AND [id number] 02:36:00 Test Item Value Reference Range Interpretation Comments UA Protein (test code = UA Negative mg/dL Protein) [facility] AND [id number] 02:36:00 Test Item Value Reference Range Interpretation Comments UA Glucose (test code = UA Negative mg/dL Glucose) [facility] AND [id number] 02:36:00 Test Item Value Reference Range Interpretation Comments UA pH (test code = UA pH) 7.5 1 5.0-8.0 [facility] AND [id number] 02:36:00 Test Item Value Reference Range Interpretation Comments UA Ketones (test code = UA Negative mg/dL Ketones) [facility] AND [id number] 02:36:00 Test Item Value Reference Range Interpretation Comments UA Bili (test code = Negative *NA*(10/30/17 UA Bili) 8:36 PM) [facility] AND [id number] 02:36:00 Test Item Value Reference Range Interpretation Comments UA Leuk Est (test Negative (10/30/17 8:36 code = UA Leuk Est) PM) [facility] AND [id number] 02:36:00 Test Item Value Reference Range Interpretation Comments UA Urobilinogen (test code = UA 0.2 0.1-1.0 Urobilinogen) [facility] AND [id number] 02:36:00 Test Item Value Reference Range Interpretation Comments UA Nitrite (test code Negative (10/30/17 8:36 = UA Nitrite) PM) [facility] AND [id number] 02:36:00 Test Item Value Reference Range Interpretation Comments UA Blood (test code = Negative (10/30/17 8:36 UA Blood) PM) [facility] AND [id number] 02:36:00 Test Item Value Reference Range Interpretation Comments UA WBC (test code = UA WBC) 6-10 /HPF [facility] AND [id number] 02:36:00 Test Item Value Reference Range Interpretation Comments UA Bacteria (test code = UA Few /HPF Bacteria) [facility] AND [id number] 02:36:00 Test Item Value Reference Range Interpretation Comments UA RBC (test code = 0-2 /HPF See_Comment [Automa incki message] The UA RBC) system which ge nerated this result tra nsmitted reference range : <=2. The reference range was not used to interpr et this result as sarahi l/abnormal. [facility] AND [id number] 02:36:00 Test Item Value Reference Range Interpretation Comments UA Sq Epi (test code = UA Sq Occasional /LPF Epi) [facility] [id number] 02:36:00 Test Item Value Reference Range Interpretation Comments U Preg (test code = U Negative (10/30/17 8:36 Preg) PM) [facility] [id number] 02:36:00 Test Item Value Reference Range Interpretation Comments Glucose Lvl (test code = Glucose Lvl) 99 70-99 [facility] [id number] 02:36:00 Test Item Value Reference Range Interpretation Comments Sodium Lvl (test code = Sodium Lvl) 137 135-145 [facility]2017-12-14 02:36:00 Test Item Value Reference Range Interpretation Comments Creatinine Lvl (test code = Creatinine 0.99 0.50-1.40 Lvl) [facility] [id number] 02:36:00 Test Item Value Reference Range Interpretation Comments AGAP (test code = AGAP) 7.2 10.0-20.0 [facility]2017-12-14 02:36:00 Test Item Value Reference Range Interpretation Comments B/C Ratio (test code = B/C Ratio) 16 6-25 [facility]2017-12-14 02:36:00 Test Item Value Reference Range Interpretation Comments A/G Ratio (test code = A/G Ratio) 1.1 0.7-1.6 [facility]2017-12-14 02:36:00 Test Item Value Reference Range Interpretation Comments Globulin (test code = Globulin) 3.5 2.7-4.[address] [facility] [place], TXUaxtfxdFCPULCOUIK4717-51-11 02:36:00 Test Item Value Reference Range Interpretation Comments Segs (test code = Segs) 69.2 45.0-75.[address] [facility] [place], TXPzaiizyQBGZXLXYFU4037-84-37 02:36:00 Test Item Value Reference Range Interpretation Comments Monocytes (test code = Monocytes) 6.3 2.0-12.[address] [facility] [place], TXFftgjhiLMQVTLCSSP1063-00-56 02:36:00 Test Item Value Reference Range Interpretation Comments Lymphocytes (test code = Lymphocytes) 22.8 20.0-40.[address] [facility] [place], TXHvugcprHPKVGPAKGL5099-53-48 02:36:00 Test Item Value Reference Range Interpretation Comments Basophils (test code = 0.5 See_Comment [Aut omated message] The Basophils) system which ge nerated this result tra nsmitted reference range : <=1.0. The reference r kishan was not used to int erpret this result as normal/abnormal . [facility] [place], TXZtbgzrqMXGNOIAQVW8348-54-87 02:36:00 Test Item Value Reference Range Interpretation Comments Basophils # (test code 0.1 See_Comment [Aut omated message] The = Basophils #) system which generated this result tra nsmitted reference range : <=0.2. The reference r kishan was not used to int erpret this result as normal/abnormal . [facility] [place], TXDyfgdnqMPVXZUYBWD7472-63-42 02:36:00 Test Item Value Reference Range Interpretation Comments Lymphocytes # (test code = Lymphocytes 2.7 1.0-5.5 #) [facility] [place], TXWdordscRDWXKJKDBM3671-38-49 02:36:00 Test Item Value Reference Range Interpretation Comments Segs-Bands # (test code = Segs-Bands #) 8.1 1.5-8.[address] [facility] [place], TXPeuxypzZQYXHICDGJ9785-95-90 02:36:00 Test Item Value Reference Range Interpretation Comments Monocytes # (test code 0.7 See_Comment [Aut omated message] The = Monocytes #) system which generated this result tra nsmitted reference range : <=0.8. The reference r kishan was not used to int erpret this result as normal/abnormal . [facility] [place], TXXrhfqugCBKUJYLKYG6462-09-35 02:36:00 Test Item Value Reference Range Interpretation Comments Eosinophils (test code = 1.2 See_Comment [A utomated message] The Eosinophils) system which ge nerated this result tra nsmitted reference range : <=4.0. The reference r kishan was not used to int erpret this result as normal/abnormal . [facility] [place], TXDhjhaasEMXDTUTOLW8755-18-41 02:36:00 Test Item Value Reference Range Interpretation Comments Eosinophils # (test code 0.1 See_Comment [A utomated message] The = Eosinophils #) system whic h generated this result tra nsmitted reference range : <=0.5. The reference r kishan was not used to int erpret this result as normal/abnormal . [facility] [place], TXLhskdniEDAPJDJVQQ2078-55-11 02:36:00 Test Item Value Reference Range Interpretation Comments MCHC (test code = MCHC) 33.5 32.0-36.[address] [facility] [place], TXFfiaagdPDTBGPKQEF6897-68-18 02:36:00 Test Item Value Reference Range Interpretation Comments RDW (test code = RDW) 13.2 11.5-14.[address] [facility] [place], TXAblifanKUBCNVRJXU7303-77-67 02:36:00 Test Item Value Reference Range Interpretation Comments Platelet (test code = Platelet) 239 133-[address] [facility] [place], TXVlhwzhpFQGVSTCQSO2495-79-22 02:36:00 Test Item Value Reference Range Interpretation Comments MPV (test code = MPV) 9.0 7.4-10.[address] [facility] [place], TXBgfbrvhFRAHDJNJEB3206-18-54 02:36:00 Test Item Value Reference Range Interpretation Comments Hgb (test code = Hgb) 14.8 12.0-16.[address] [facility] [place], TXEobtuivHYLNOMHPGQ4779-73-42 02:36:00 Test Item Value Reference Range Interpretation Comments RBC X 10x6 (test code = RBC X 10x6) 4.92 4.20-5.[address] [facility] [place], TXKuwbpmmPBWUKBGCNS3625-48-49 02:36:00 Test Item Value Reference Range Interpretation Comments Hct (test code = Hct) 44.2 36.0-48.[address] [facility] [place], TXIifgzetRPFLYXZYMA9550-68-02 02:36:00 Test Item Value Reference Range Interpretation Comments MCV (test code = MCV) 89.8 80.0-98.[address] [facility] [place], TXQsyymyvQHIEFFLIYD1625-32-29 02:36:00 Test Item Value Reference Range Interpretation Comments WBC X 10x3 (test code = WBC X 10x3) 11.7 3.7-10.[address] [facility] [place], TXCnygbwmUAEREECXIF6668-05-43 02:36:00 Test Item Value Reference Range Interpretation Comments MCH (test code = MCH) 30.1 pg 27.0-31.0 [facility] AND [id number] 02:36:00 Test Item Value Reference Range Interpretation Comments UA Color (test code = Yellow *NA*(10/30/17 UA Color) 8:36 PM) [facility] AND [id number] 02:36:00 Test Item Value Reference Range Interpretation Comments UA Turbidity (test code = Clear (10/30/17 8:36 UA Turbidity) PM) [facility] AND [id number] 02:36:00 Test Item Value Reference Range Interpretation Comments UA Spec Grav (test code = UA Spec 1.010 1 Grav) [facility] AND [id number] 02:36:00 Test Item Value Reference Range Interpretation Comments UA Protein (test code = UA Negative mg/dL Protein) [facility] AND [id number] 02:36:00 Test Item Value Reference Range Interpretation Comments UA Glucose (test code = UA Negative mg/dL Glucose) [facility] AND [id number] 02:36:00 Test Item Value Reference Range Interpretation Comments UA pH (test code = UA pH) 7.5 1 5.0-8.0 [facility] AND [id number] 02:36:00 Test Item Value Reference Range Interpretation Comments UA Ketones (test code = UA Negative mg/dL Ketones) [facility] AND [id number] 02:36:00 Test Item Value Reference Range Interpretation Comments UA Bili (test code = Negative *NA*(10/30/17 UA Bili) 8:36 PM) [facility] [id number] 02:36:00 Test Item Value Reference Range Interpretation Comments UA Leuk Est (test Negative (10/30/17 8:36 code = UA Leuk Est) PM) [facility] [id number] 02:36:00 Test Item Value Reference Range Interpretation Comments UA Urobilinogen (test code = UA 0.2 0.1-1.0 Urobilinogen) [facility] [id number] 02:36:00 Test Item Value Reference Range Interpretation Comments UA Nitrite (test code Negative (10/30/17 8:36 = UA Nitrite) PM) [facility] [id number] 02:36:00 Test Item Value Reference Range Interpretation Comments UA Blood (test code = Negative (10/30/17 8:36 UA Blood) PM) [facility] [id number] 02:36:00 Test Item Value Reference Range Interpretation Comments UA WBC (test code = UA WBC) 6-10 /HPF [facility] [id number] 02:36:00 Test Item Value Reference Range Interpretation Comments UA Bacteria (test code = UA Few /HPF Bacteria) [facility] [id number] 02:36:00 Test Item Value Reference Range Interpretation Comments UA RBC (test code = 0-2 /HPF See_Comment [Automa nicki message] The UA RBC) system which ge nerated this result tra nsmitted reference range : <=2. The reference range was not used to interpr et this result as sarahi l/abnormal. [facility] [id number] 02:36:00 Test Item Value Reference Range Interpretation Comments UA Sq Epi (test code = UA Sq Occasional /LPF Epi) [facility] [id number] 02:36:00 Test Item Value Reference Range Interpretation Comments U Preg (test code = U Negative (10/30/17 8:36 Preg) PM) [facility] [id number] 02:36:00 Test Item Value Reference Range Interpretation Comments eGFR (test code = eGFR) 72 [facility] [id number] 02:36:00 Test Item Value Reference Range Interpretation Comments ALANINE AMINOTRANSFERASE 55 See_Comment [A utomated message] (test code = ALANINE The sys tem which AMINOTRANSFERASE) generated this result transmitted ref erence range: <=65. Th e reference range was not used to int erpret this result as normal/abnormal . [facility]2017-12-14 02:36:00 Test Item Value Reference Range Interpretation Comments Alk Phos (test code = Alk Phos) 71 39-136 [facility]2017-12-14 02:36:00 Test Item Value Reference Range Interpretation Comments Albumin Lvl (test code = Albumin Lvl) 3.8 3.5-5.0 [facility]2017-12-14 02:36:00 Test Item Value Reference Range Interpretation Comments ASPARTATE TRANSAMINASE 33 See_Comment [Aut omated message] (test code = ASPARTATE The s ystem which TRANSAMINASE) generated this result transmitted ref erence range: <=37. Th e reference range was not used to interpr et this result as normal/abnormal . [facility]2017-12-14 02:36:00 Test Item Value Reference Range Interpretation Comments Bili Total (test code = Bili Total) 0.2 0.2-1.3 [facility]2017-12-14 02:36:00 Test Item Value Reference Range Interpretation Comments Potassium Lvl (test code = Potassium 4.2 3.5-5.1 Lvl) [facility]2017-12-14 02:36:00 Test Item Value Reference Range Interpretation Comments Calcium Lvl (test code = Calcium Lvl) 9.1 8.5-10.5 [facility]2017-12-14 02:36:00 Test Item Value Reference Range Interpretation Comments CO2 (test code = CO2) 31 24-32 [facility]2017-12-14 02:36:00 Test Item Value Reference Range Interpretation Comments Chloride Lvl (test code = Chloride Lvl) 103 95-109 [facility]2017-12-14 02:36:00 Test Item Value Reference Range Interpretation Comments Total Protein (test code = Total 7.3 6.4-8.4 Protein) [facility]2017-12-14 02:36:00 Test Item Value Reference Range Interpretation Comments BUN (test code = BUN) 16 7-22 [facility]2017-12-14 02:36:00 Test Item Value Reference Range Interpretation Comments Glucose Lvl (test code = Glucose Lvl) 99 70-99 [facility]2017-12-14 02:36:00 Test Item Value Reference Range Interpretation Comments eGFR (test code = eGFR) 72 [facility]2017-12-14 02:36:00 Test Item Value Reference Range Interpretation Comments Sodium Lvl (test code = Sodium Lvl) 137 135-145 [place] [id number] 02:36:00 Test Item Value Reference Range Interpretation Comments Creatinine Lvl (test code = Creatinine 0.99 0.50-1.40 Lvl) [facility]2017-12-14 02:36:00 Test Item Value Reference Range Interpretation Comments AGAP (test code = AGAP) 7.2 10.0-20.0 [place] [id number] 02:36:00 Test Item Value Reference Range Interpretation Comments B/C Ratio (test code = B/C Ratio) 16 6-25 [place] [id number] 02:36:00 Test Item Value Reference Range Interpretation Comments A/G Ratio (test code = A/G Ratio) 1.1 0.7-1.6 [place] [id number] 02:36:00 Test Item Value Reference Range Interpretation Comments Globulin (test code = Globulin) 3.5 2.7-4.2 [place] [id number] 02:36:00 Test Item Value Reference Range Interpretation Comments Segs (test code = Segs) 69.2 45.0-75.[address] [facility] [place], TXDxhejuvJALJWCYFRP9150-11-52 02:36:00 Test Item Value Reference Range Interpretation Comments Monocytes (test code = Monocytes) 6.3 2.0-12.0 [place] [id number] 02:36:00 Test Item Value Reference Range Interpretation Comments Lymphocytes (test code = Lymphocytes) 22.8 20.0-40.0 [place] [id number] 02:36:00 Test Item Value Reference Range Interpretation Comments Basophils (test code = 0.5 See_Comment [Aut omated message] The Basophils) system which ge nerated this result tra nsmitted reference range : <=1.0. The reference r kishan was not used to int erpret this result as normal/abnormal . [facility]2017-12-14 02:36:00 Test Item Value Reference Range Interpretation Comments ALANINE AMINOTRANSFERASE 55 See_Comment [A utomated message] (test code = ALANINE The sys tem which AMINOTRANSFERASE) generated this result transmitted ref erence range: <=65. Th e reference range was not used to int erpret this result as normal/abnormal . [facility] [place], TXXxfojvyWSQIAUUXIR7126-14-47 02:36:00 Test Item Value Reference Range Interpretation Comments Basophils # (test code 0.1 See_Comment [Aut omated message] The = Basophils #) system which generated this result tra nsmitted reference range : <=0.2. The reference r kishan was not used to int erpret this result as normal/abnormal . [facility] [place], TXYpidmanBXVHBZUMST9189-34-05 02:36:00 Test Item Value Reference Range Interpretation Comments Lymphocytes # (test code = Lymphocytes 2.7 1.0-5.5 #) [facility] [place], TXIrngmyrNIVRMSPAPO7143-24-38 02:36:00 Test Item Value Reference Range Interpretation Comments Segs-Bands # (test code = Segs-Bands #) 8.1 1.5-8.[address] [facility] [place], TXTefohoxTPFNZRTPLU0643-42-73 02:36:00 Test Item Value Reference Range Interpretation Comments Monocytes # (test code 0.7 See_Comment [Aut omated message] The = Monocytes #) system which generated this result tra nsmitted reference range : <=0.8. The reference r kishan was not used to int erpret this result as normal/abnormal . [facility] [place], TXIdpgrwpWRGTVOUOAG3140-97-32 02:36:00 Test Item Value Reference Range Interpretation Comments Eosinophils (test code = 1.2 See_Comment [A utomated message] The Eosinophils) system which ge nerated this result tra nsmitted reference range : <=4.0. The reference r kishan was not used to int erpret this result as normal/abnormal . [facility] [place], TXRwkrxouOBKMYNZCLK5182-21-83 02:36:00 Test Item Value Reference Range Interpretation Comments Eosinophils # (test code 0.1 See_Comment [A utomated message] The = Eosinophils #) system whic h generated this result tra nsmitted reference range : <=0.5. The reference r kishan was not used to int erpret this result as normal/abnormal . [facility]XeqwwswEODWCQYFHP4270-45-48 02:36:00 Test Item Value Reference Range Interpretation Comments MCHC (test code = MCHC) 33.5 32.0-36.0 [facility] HospitalJmiikacQLZAWUOMAU5592-17-01 02:36:00 Test Item Value Reference Range Interpretation Comments RDW (test code = RDW) 13.2 11.5-14.5 [facility] HospitalHluvjeoZYRPDJAOHU0383-04-03 02:36:00 Test Item Value Reference Range Interpretation Comments Platelet (test code = Platelet) 239 133-450 [facility]pUMSPLXEEPA4606-07-63 02:36:00 Test Item Value Reference Range Interpretation Comments MPV (test code = MPV) 9.0 7.4-10.4 [facility] [id number] 02:36:00 Test Item Value Reference Range Interpretation Comments Alk Phos (test code = Alk Phos) 71 39-[address] [facility] [place], TXRdvzfyqVPADBXOOTW1240-31-89 02:36:00 Test Item Value Reference Range Interpretation Comments Hgb (test code = Hgb) 14.8 12.0-16.0 [facility] HospitalFdmlcgcUCAWFKNXUH8082-10-12 02:36:00 Test Item Value Reference Range Interpretation Comments RBC X 10x6 (test code = RBC X 10x6) 4.92 4.20-5.40 [facility] HospitalMlimitbNGHXURXGBE0694-79-29 02:36:00 Test Item Value Reference Range Interpretation Comments Hct (test code = Hct) 44.2 36.0-48.0 [facility] HospitalSlpodmzUGQDRZWDPO2135-93-09 02:36:00 Test Item Value Reference Range Interpretation Comments MCV (test code = MCV) 89.8 80.0-98.0 [facility] HospitalOucxjhrZIUWZIGOCQ7121-65-62 02:36:00 Test Item Value Reference Range Interpretation Comments WBC X 10x3 (test code = WBC X 10x3) 11.7 3.7-10.4 [facility] HospitalHbqcuhwMCODWBYHXF4784-51-22 02:36:00 Test Item Value Reference Range Interpretation Comments MCH (test code = MCH) 30.1 pg 27.0-31.0 [facility] AND [id number] 02:36:00 Test Item Value Reference Range Interpretation Comments UA Color (test code = Yellow *NA*(10/30/17 UA Color) 8:36 PM) [facility] AND [id number] 02:36:00 Test Item Value Reference Range Interpretation Comments UA Turbidity (test code = Clear (10/30/17 8:36 UA Turbidity) PM) [facility] [id number] 02:36:00 Test Item Value Reference Range Interpretation Comments UA Spec Grav (test code = UA Spec 1.010 1 Grav) [facility] AND [id number] 02:36:00 Test Item Value Reference Range Interpretation Comments UA Protein (test code = UA Negative mg/dL Protein) [facility] [id number] 02:36:00 Test Item Value Reference Range Interpretation Comments Albumin Lvl (test code = Albumin Lvl) 3.8 3.5-5.0 [facility] AND [id number] 02:36:00 Test Item Value Reference Range Interpretation Comments UA Glucose (test code = UA Negative mg/dL Glucose) [facility] AND [id number] 02:36:00 Test Item Value Reference Range Interpretation Comments UA pH (test code = UA pH) 7.5 1 5.0-8.0 [facility] AND [id number] 02:36:00 Test Item Value Reference Range Interpretation Comments UA Ketones (test code = UA Negative mg/dL Ketones) [facility] AND [id number] 02:36:00 Test Item Value Reference Range Interpretation Comments UA Bili (test code = Negative *NA*(10/30/17 UA Bili) 8:36 PM) [facility] AND [id number] 02:36:00 Test Item Value Reference Range Interpretation Comments UA Leuk Est (test Negative (10/30/17 8:36 code = UA Leuk Est) PM) [facility] AND [id number] 02:36:00 Test Item Value Reference Range Interpretation Comments UA Urobilinogen (test code = UA 0.2 0.1-1.0 Urobilinogen) [facility] AND [id number] 02:36:00 Test Item Value Reference Range Interpretation Comments UA Nitrite (test code Negative (10/30/17 8:36 = UA Nitrite) PM) [facility] [id number] 02:36:00 Test Item Value Reference Range Interpretation Comments UA Blood (test code = Negative (10/30/17 8:36 UA Blood) PM) [facility] AND [id number] 02:36:00 Test Item Value Reference Range Interpretation Comments UA WBC (test code = UA WBC) 6-10 /HPF [facility] AND [id number] 02:36:00 Test Item Value Reference Range Interpretation Comments UA Bacteria (test code = UA Few /HPF Bacteria) [facility] [id number] 02:36:00 Test Item Value Reference Range Interpretation Comments ASPARTATE TRANSAMINASE 33 See_Comment [Aut omated message] (test code = ASPARTATE The s ystem which TRANSAMINASE) generated this result transmitted ref erence range: <=37. Th e reference range was not used to interpr et this result as normal/abnormal . [facility] AND [id number] 02:36:00 Test Item Value Reference Range Interpretation Comments UA RBC (test code = 0-2 /HPF See_Comment [Automa nicki message] The UA RBC) system which ge nerated this result tra nsmitted reference range : <=2. The reference range was not used to interpr et this result as sarahi l/abnormal. [facility] AND [id number] 02:36:00 Test Item Value Reference Range Interpretation Comments UA Sq Epi (test code = UA Sq Occasional /LPF Epi) [facility] [id number] 02:36:00 Test Item Value Reference Range Interpretation Comments U Preg (test code = U Negative (10/30/17 8:36 Preg) PM) [facility] [id number] 02:36:00 Test Item Value Reference Range Interpretation Comments eGFR (test code = eGFR) 72 [facility] [id number] 02:36:00 Test Item Value Reference Range Interpretation Comments ALANINE AMINOTRANSFERASE 55 See_Comment [A utomated message] (test code = ALANINE The sys tem which AMINOTRANSFERASE) generated this result transmitted ref erence range: <=65. Th e reference range was not used to int erpret this result as normal/abnormal . [facility] [id number] 02:36:00 Test Item Value Reference Range Interpretation Comments Alk Phos (test code = Alk Phos) 71 39-136 [facility]2017-12-14 02:36:00 Test Item Value Reference Range Interpretation Comments Albumin Lvl (test code = Albumin Lvl) 3.8 3.5-5.0 [facility]2017-12-14 02:36:00 Test Item Value Reference Range Interpretation Comments Bili Total (test code = Bili Total) 0.2 0.2-1.3 [facility]2017-12-14 02:36:00 Test Item Value Reference Range Interpretation Comments ASPARTATE TRANSAMINASE 33 See_Comment [Aut omated message] (test code = ASPARTATE The s ystem which TRANSAMINASE) generated this result transmitted ref erence range: <=37. Th e reference range was not used to interpr et this result as normal/abnormal . [facility]2017-12-14 02:36:00 Test Item Value Reference Range Interpretation Comments Bili Total (test code = Bili Total) 0.2 0.2-1.3 [facility]2017-12-14 02:36:00 Test Item Value Reference Range Interpretation Comments Potassium Lvl (test code = Potassium 4.2 3.5-5.1 Lvl) [facility]2017-12-14 02:36:00 Test Item Value Reference Range Interpretation Comments Calcium Lvl (test code = Calcium Lvl) 9.1 8.5-10.5 [facility]2017-12-14 02:36:00 Test Item Value Reference Range Interpretation Comments CO2 (test code = CO2) 31 24-32 [facility]2017-12-14 02:36:00 Test Item Value Reference Range Interpretation Comments Chloride Lvl (test code = Chloride Lvl) 103 95-109 [facility]2017-12-14 02:36:00 Test Item Value Reference Range Interpretation Comments Total Protein (test code = Total 7.3 6.4-8.4 Protein) [facility]2017-12-14 02:36:00 Test Item Value Reference Range Interpretation Comments BUN (test code = BUN) 16 7-22 [facility]2017-12-14 02:36:00 Test Item Value Reference Range Interpretation Comments Glucose Lvl (test code = Glucose Lvl) 99 70-99 [facility]2017-12-14 02:36:00 Test Item Value Reference Range Interpretation Comments Sodium Lvl (test code = Sodium Lvl) 137 135-145 [facility]2017-12-14 02:36:00 Test Item Value Reference Range Interpretation Comments Potassium Lvl (test code = Potassium 4.2 3.5-5.1 Lvl) [facility]2017-12-14 02:36:00 Test Item Value Reference Range Interpretation Comments Creatinine Lvl (test code = Creatinine 0.99 0.50-1.40 Lvl) [facility]2017-12-14 02:36:00 Test Item Value Reference Range Interpretation Comments AGAP (test code = AGAP) 7.2 10.0-20.0 [facility]2017-12-14 02:36:00 Test Item Value Reference Range Interpretation Comments B/C Ratio (test code = B/C Ratio) 16 6-25 [facility]2017-12-14 02:36:00 Test Item Value Reference Range Interpretation Comments A/G Ratio (test code = A/G Ratio) 1.1 0.7-1.6 [facility]2017-12-14 02:36:00 Test Item Value Reference Range Interpretation Comments Globulin (test code = Globulin) 3.5 2.7-4.[address] [facility] [place], [id number] 02:36:00 Test Item Value Reference Range Interpretation Comments Segs (test code = Segs) 69.2 45.0-75.[address] [facility] [place], TXWmqqvpoXYTTNVDZMO3833-76-81 02:36:00 Test Item Value Reference Range Interpretation Comments Monocytes (test code = Monocytes) 6.3 2.0-12.[address] [facility] [place], [id number] 02:36:00 Test Item Value Reference Range Interpretation Comments Lymphocytes (test code = Lymphocytes) 22.8 20.0-40.[address] [facility] [place], TXOoxvxxeRFTREVNRUR3083-24-16 02:36:00 Test Item Value Reference Range Interpretation Comments Basophils (test code = 0.5 See_Comment [Aut omated message] The Basophils) system which ge nerated this result tra nsmitted reference range : <=1.0. The reference r kishan was not used to int erpret this result as normal/abnormal . [facility] [place], TXFvzjuufTKQLGFNABS7436-51-28 02:36:00 Test Item Value Reference Range Interpretation Comments Basophils # (test code 0.1 See_Comment [Aut omated message] The = Basophils #) system which generated this result tra nsmitted reference range : <=0.2. The reference r kishan was not used to int erpret this result as normal/abnormal . [facility]2017-12-14 02:36:00 Test Item Value Reference Range Interpretation Comments Calcium Lvl (test code = Calcium Lvl) 9.1 8.5-10.[address] [facility] [place], TXZbujtxwNLDSCRLSRL9067-37-02 02:36:00 Test Item Value Reference Range Interpretation Comments Lymphocytes # (test code = Lymphocytes 2.7 1.0-5.5 #) [facility] [place], TXKbgbqpyTTAFWLJHAM9359-74-58 02:36:00 Test Item Value Reference Range Interpretation Comments Segs-Bands # (test code = Segs-Bands #) 8.1 1.5-8.[address] [facility] [place], TXAbcvjsuLMPIPULMVF8313-24-28 02:36:00 Test Item Value Reference Range Interpretation Comments Monocytes # (test code 0.7 See_Comment [Aut omated message] The = Monocytes #) system which generated this result tra nsmitted reference range : <=0.8. The reference r kishan was not used to int erpret this result as normal/abnormal . [facility] [place], TXHuifxuuHSBZCINCMW4506-10-35 02:36:00 Test Item Value Reference Range Interpretation Comments Eosinophils (test code = 1.2 See_Comment [A utomated message] The Eosinophils) system which ge nerated this result tra nsmitted reference range : <=4.0. The reference r kishan was not used to int erpret this result as normal/abnormal . [facility] [place], TXQdvpmkuAEYQVRRTNU1140-69-25 02:36:00 Test Item Value Reference Range Interpretation Comments Eosinophils # (test code 0.1 See_Comment [A utomated message] The = Eosinophils #) system whic h generated this result tra nsmitted reference range : <=0.5. The reference r kishan was not used to int erpret this result as normal/abnormal . [facility] [place], [id number] 02:36:00 Test Item Value Reference Range Interpretation Comments MCHC (test code = MCHC) 33.5 32.0-36.[address] [facility] [place], [id number] 02:36:00 Test Item Value Reference Range Interpretation Comments RDW (test code = RDW) 13.2 11.5-14.[address] [facility] [place], TXRzvdnuiBAFOKNYOYI8365-29-28 02:36:00 Test Item Value Reference Range Interpretation Comments Platelet (test code = Platelet) 239 133-[address] [facility] [place], TXKhbarvfDDEYTCJKXU4665-81-83 02:36:00 Test Item Value Reference Range Interpretation Comments MPV (test code = MPV) 9.0 7.4-10.[address] [facility] [place], TXJyowqmtIVQVVAMGVX4429-08-29 02:36:00 Test Item Value Reference Range Interpretation Comments Hgb (test code = Hgb) 14.8 12.0-16.0 [facility]2017-12-14 02:36:00 Test Item Value Reference Range Interpretation Comments CO2 (test code = CO2) 31 24-[address] [facility] [place], TXXzbsyxuUKTESJVTBS5712-29-58 02:36:00 Test Item Value Reference Range Interpretation Comments RBC X 10x6 (test code = RBC X 10x6) 4.92 4.20-5.[address] [facility] [place], TXUrzlpdsKLOVSPKYJE8072-39-73 02:36:00 Test Item Value Reference Range Interpretation Comments Hct (test code = Hct) 44.2 36.0-48.[address] [facility] [place], TXRyfrvsdFRZXVGSAAD0530-48-81 02:36:00 Test Item Value Reference Range Interpretation Comments MCV (test code = MCV) 89.8 80.0-98.[address] [facility] [place], TXSictctwNFIFVMEFSE0985-05-58 02:36:00 Test Item Value Reference Range Interpretation Comments WBC X 10x3 (test code = WBC X 10x3) 11.7 3.7-10.[address] [facility] [place], TXHlxrfvjSIGCUMPYKI9665-18-67 02:36:00 Test Item Value Reference Range Interpretation Comments MCH (test code = MCH) 30.1 pg 27.0-31.0 [facility] AND [id number] 02:36:00 Test Item Value Reference Range Interpretation Comments UA Color (test code = Yellow *NA*(10/30/17 UA Color) 8:36 PM) [facility] AND [id number] 02:36:00 Test Item Value Reference Range Interpretation Comments UA Turbidity (test code = Clear (10/30/17 8:36 UA Turbidity) PM) [facility] AND [id number] 02:36:00 Test Item Value Reference Range Interpretation Comments UA Spec Grav (test code = UA Spec 1.010 1 Grav) [facility] AND [id number] 02:36:00 Test Item Value Reference Range Interpretation Comments UA Protein (test code = UA Negative mg/dL Protein) [facility] AND [id number] 02:36:00 Test Item Value Reference Range Interpretation Comments UA Glucose (test code = UA Negative mg/dL Glucose) [facility] [id number] 02:36:00 Test Item Value Reference Range Interpretation Comments Chloride Lvl (test code = Chloride Lvl) 103 95-109 [facility] AND [id number] 02:36:00 Test Item Value Reference Range Interpretation Comments UA pH (test code = UA pH) 7.5 1 5.0-8.0 [facility] AND [id number] 02:36:00 Test Item Value Reference Range Interpretation Comments UA Ketones (test code = UA Negative mg/dL Ketones) [facility] AND [id number] 02:36:00 Test Item Value Reference Range Interpretation Comments UA Bili (test code = Negative *NA*(10/30/17 UA Bili) 8:36 PM) [facility] AND [id number] 02:36:00 Test Item Value Reference Range Interpretation Comments UA Leuk Est (test Negative (10/30/17 8:36 code = UA Leuk Est) PM) [facility] AND [id number] 02:36:00 Test Item Value Reference Range Interpretation Comments UA Urobilinogen (test code = UA 0.2 0.1-1.0 Urobilinogen) [facility] AND [id number] 02:36:00 Test Item Value Reference Range Interpretation Comments UA Nitrite (test code Negative (10/30/17 8:36 = UA Nitrite) PM) [facility] AND [id number] 02:36:00 Test Item Value Reference Range Interpretation Comments UA Blood (test code = Negative (10/30/17 8:36 UA Blood) PM) [facility] AND [id number] 02:36:00 Test Item Value Reference Range Interpretation Comments UA WBC (test code = UA WBC) 6-10 [facility] [id number] 02:36:00 Test Item Value Reference Range Interpretation Comments UA Bacteria (test code = UA Few /HPF Bacteria) [facility] [id number] 02:36:00 Test Item Value Reference Range Interpretation Comments UA RBC (test code = 0-2 /HPF See_Comment [Automa nicki message] The UA RBC) system which ge nerated this result tra nsmitted reference range : <=2. The reference range was not used to interpr et this result as sarahi l/abnormal. [facility] [id number] 02:36:00 Test Item Value Reference Range Interpretation Comments Total Protein (test code = Total 7.3 6.4-8.4 Protein) [facility] AND [id number] 02:36:00 Test Item Value Reference Range Interpretation Comments UA Sq Epi (test code = UA Sq Occasional /LPF Epi) [facility] [id number] 02:36:00 Test Item Value Reference Range Interpretation Comments U Preg (test code = U Negative (10/30/17 8:36 Preg) PM) [facility] [id number] 02:36:00 Test Item Value Reference Range Interpretation Comments eGFR (test code = eGFR) 72 [facility] [id number] 02:36:00 Test Item Value Reference Range Interpretation Comments ALANINE AMINOTRANSFERASE 55 See_Comment [A utomated message] (test code = ALANINE The sys tem which AMINOTRANSFERASE) generated this result transmitted ref erence range: <=65. Th e reference range was not used to int erpret this result as normal/abnormal . [facility] [id number] 02:36:00 Test Item Value Reference Range Interpretation Comments Alk Phos (test code = Alk Phos) 71 39-136 [facility] [id number] 02:36:00 Test Item Value Reference Range Interpretation Comments Albumin Lvl (test code = Albumin Lvl) 3.8 3.5-5.0 [facility] [id number] 02:36:00 Test Item Value Reference Range Interpretation Comments ASPARTATE TRANSAMINASE 33 See_Comment [Aut omated message] (test code = ASPARTATE The s ystem which TRANSAMINASE) generated this result transmitted ref erence range: <=37. Th e reference range was not used to interpr et this result as normal/abnormal . [facility]2017-12-14 02:36:00 Test Item Value Reference Range Interpretation Comments BUN (test code = BUN) 16 06-08 [facility]2017-12-14 02:36:00 Test Item Value Reference Range Interpretation Comments Bili Total (test code = Bili Total) 0.2 0.2-1.3 [facility]2017-12-14 02:36:00 Test Item Value Reference Range Interpretation Comments Potassium Lvl (test code = Potassium 4.2 3.5-5.1 Lvl) [facility]2017-12-14 02:36:00 Test Item Value Reference Range Interpretation Comments Calcium Lvl (test code = Calcium Lvl) 9.1 8.5-10.5 [facility]2017-12-14 02:36:00 Test Item Value Reference Range Interpretation Comments CO2 (test code = CO2) 31 24-32 [facility]2017-12-14 02:36:00 Test Item Value Reference Range Interpretation Comments Chloride Lvl (test code = Chloride Lvl) 103 95-109 [facility]2017-12-14 02:36:00 Test Item Value Reference Range Interpretation Comments Total Protein (test code = Total 7.3 6.4-8.4 Protein) [facility]2017-12-14 02:36:00 Test Item Value Reference Range Interpretation Comments BUN (test code = BUN) 16 06-08 [facility]2017-12-14 02:36:00 Test Item Value Reference Range Interpretation Comments Glucose Lvl (test code = Glucose Lvl) 99 70-99 [facility]2017-12-14 02:36:00 Test Item Value Reference Range Interpretation Comments Sodium Lvl (test code = Sodium Lvl) 137 135-145 [facility]2017-12-14 02:36:00 Test Item Value Reference Range Interpretation Comments Creatinine Lvl (test code = Creatinine 0.99 0.50-1.40 Lvl) [facility]2017-12-14 02:36:00 Test Item Value Reference Range Interpretation Comments Glucose Lvl (test code = Glucose Lvl) 99 70-99 [facility]2017-12-14 02:36:00 Test Item Value Reference Range Interpretation Comments AGAP (test code = AGAP) 7.2 10.0-20.0 [facility]2017-12-14 02:36:00 Test Item Value Reference Range Interpretation Comments B/C Ratio (test code = B/C Ratio) 16 6-25 [facility]2017-12-14 02:36:00 Test Item Value Reference Range Interpretation Comments A/G Ratio (test code = A/G Ratio) 1.1 0.7-1.6 [facility]2017-12-14 02:36:00 Test Item Value Reference Range Interpretation Comments Globulin (test code = Globulin) 3.5 2.7-4.[address] [facility] [place], [id number] 02:36:00 Test Item Value Reference Range Interpretation Comments Segs (test code = Segs) 69.2 45.0-75.[address] [facility] [place], TXOhatdleUDHSIAFMMB2650-69-35 02:36:00 Test Item Value Reference Range Interpretation Comments Monocytes (test code = Monocytes) 6.3 2.0-12.[address] [facility] [place], [id number] 02:36:00 Test Item Value Reference Range Interpretation Comments Lymphocytes (test code = Lymphocytes) 22.8 20.0-40.[address] [facility] [place], [id number] 02:36:00 Test Item Value Reference Range Interpretation Comments Basophils (test code = 0.5 See_Comment [Aut omated message] The Basophils) system which ge nerated this result tra nsmitted reference range : <=1.0. The reference r kishan was not used to int erpret this result as normal/abnormal . [facility] [place], [id number] 02:36:00 Test Item Value Reference Range Interpretation Comments Basophils # (test code 0.1 See_Comment [Aut omated message] The = Basophils #) system which generated this result tra nsmitted reference range : <=0.2. The reference r kishan was not used to int erpret this result as normal/abnormal . [facility] [place], TXSlcnsysJUEEWOWGJE5755-00-30 02:36:00 Test Item Value Reference Range Interpretation Comments Lymphocytes # (test code = Lymphocytes 2.7 1.0-5.5 #) [facility]2017-12-14 02:36:00 Test Item Value Reference Range Interpretation Comments Sodium Lvl (test code = Sodium Lvl) 137 135-[address] [facility] [place], TXOuhvoygQDCYBCFXJM2854-82-13 02:36:00 Test Item Value Reference Range Interpretation Comments Segs-Bands # (test code = Segs-Bands #) 8.1 1.5-8.[address] [facility] [place], TXCiusmmeGMXFGUMBQR0197-64-70 02:36:00 Test Item Value Reference Range Interpretation Comments Monocytes # (test code 0.7 See_Comment [Aut omated message] The = Monocytes #) system which generated this result tra nsmitted reference range : <=0.8. The reference r kishan was not used to int erpret this result as normal/abnormal . [facility] [place], TXYzibmwmODZBBIJVSV3395-77-31 02:36:00 Test Item Value Reference Range Interpretation Comments Eosinophils (test code = 1.2 See_Comment [A utomated message] The Eosinophils) system which ge nerated this result tra nsmitted reference range : <=4.0. The reference r kishan was not used to int erpret this result as normal/abnormal . [facility] [place], TXAjktqimUMJQWBTNMD4155-00-96 02:36:00 Test Item Value Reference Range Interpretation Comments Eosinophils # (test code 0.1 See_Comment [A utomated message] The = Eosinophils #) system whic h generated this result tra nsmitted reference range : <=0.5. The reference r kishan was not used to int erpret this result as normal/abnormal . [facility] [place], TXFkssfmuEKCIGQEPHN4710-16-92 02:36:00 Test Item Value Reference Range Interpretation Comments MCHC (test code = MCHC) 33.5 32.0-36.[address] [facility] [place], TXOzkusmpNVENESPKLS8790-69-97 02:36:00 Test Item Value Reference Range Interpretation Comments RDW (test code = RDW) 13.2 11.5-14.[address] [facility] [place], [id number] 02:36:00 Test Item Value Reference Range Interpretation Comments Platelet (test code = Platelet) 239 133-[address] [facility] [place], TXQcauskoTGZFYGTZMO2529-62-23 02:36:00 Test Item Value Reference Range Interpretation Comments MPV (test code = MPV) 9.0 7.4-10.[address] [facility] [place], TXLdnngbqYVPPNKSSJA4977-17-68 02:36:00 Test Item Value Reference Range Interpretation Comments Hgb (test code = Hgb) 14.8 12.0-16.[address] [facility] [place], TXRsbrbjrYMMEDLZDPQ1498-80-67 02:36:00 Test Item Value Reference Range Interpretation Comments RBC X 10x6 (test code = RBC X 10x6) 4.92 4.20-5.40 [facility]2017-12-14 02:36:00 Test Item Value Reference Range Interpretation Comments Creatinine Lvl (test code = Creatinine 0.99 0.50-1.40 Lvl) [facility] [place], [id number] 02:36:00 Test Item Value Reference Range Interpretation Comments Hct (test code = Hct) 44.2 36.0-48.[address] [facility] [place], TXVelrfeeQCTVZIZUOG4179-66-77 02:36:00 Test Item Value Reference Range Interpretation Comments MCV (test code = MCV) 89.8 80.0-98.[address] [facility] [place], TXRxjqlirKZVFBPSMDZ8277-14-35 02:36:00 Test Item Value Reference Range Interpretation Comments WBC X 10x3 (test code = WBC X 10x3) 11.7 3.7-10.[address] [facility] [place], TXNwyebtlFTTMRSKNBT5247-27-96 02:36:00 Test Item Value Reference Range Interpretation Comments MCH (test code = MCH) 30.1 pg 27.0-31.0 [facility] AND [id number] 02:36:00 Test Item Value Reference Range Interpretation Comments UA Color (test code = Yellow *NA*(10/30/17 UA Color) 8:36 PM) [facility] AND [id number] 02:36:00 Test Item Value Reference Range Interpretation Comments UA Turbidity (test code = Clear (10/30/17 8:36 UA Turbidity) PM) [facility] AND [id number] 02:36:00 Test Item Value Reference Range Interpretation Comments UA Spec Grav (test code = UA Spec 1.010 1 Grav) [facility] AND [id number] 02:36:00 Test Item Value Reference Range Interpretation Comments UA Protein (test code = UA Negative mg/dL Protein) [facility] AND [id number] 02:36:00 Test Item Value Reference Range Interpretation Comments UA Glucose (test code = UA Negative mg/dL Glucose) [facility] AND [id number] 02:36:00 Test Item Value Reference Range Interpretation Comments UA pH (test code = UA pH) 7.5 1 5.0-8.0 [facility] [id number] 02:36:00 Test Item Value Reference Range Interpretation Comments AGAP (test code = AGAP) 7.2 10.0-20.0 [facility] AND [id number] 02:36:00 Test Item Value Reference Range Interpretation Comments UA Ketones (test code = UA Negative mg/dL Ketones) [facility] AND [id number] 02:36:00 Test Item Value Reference Range Interpretation Comments UA Bili (test code = Negative *NA*(10/30/17 UA Bili) 8:36 PM) [facility] AND [id number] 02:36:00 Test Item Value Reference Range Interpretation Comments UA Leuk Est (test Negative (10/30/17 8:36 code = UA Leuk Est) PM) [facility] AND [id number] 02:36:00 Test Item Value Reference Range Interpretation Comments UA Urobilinogen (test code = UA 0.2 0.1-1.0 Urobilinogen) [facility] AND [id number] 02:36:00 Test Item Value Reference Range Interpretation Comments UA Nitrite (test code Negative (10/30/17 8:36 = UA Nitrite) PM) [facility] AND [id number] 02:36:00 Test Item Value Reference Range Interpretation Comments UA Blood (test code = Negative (10/30/17 8:36 UA Blood) PM) [facility] AND [id number] 02:36:00 Test Item Value Reference Range Interpretation Comments UA WBC (test code = UA WBC) 6-10 /HPF [facility] AND [id number] 02:36:00 Test Item Value Reference Range Interpretation Comments UA Bacteria (test code = UA Few /HPF Bacteria) [facility] AND [id number] 02:36:00 Test Item Value Reference Range Interpretation Comments UA RBC (test code = 0-2 /HPF See_Comment [Automa nicki message] The UA RBC) system which ge nerated this result tra nsmitted reference range : <=2. The reference range was not used to interpr et this result as sarahi l/abnormal. [facility] AND [id number] 02:36:00 Test Item Value Reference Range Interpretation Comments UA Sq Epi (test code = UA Sq Occasional /LPF Epi) [facility] [facility] [id number] 02:36:00 Test Item Value Reference Range Interpretation Comments B/C Ratio (test code = B/C Ratio) 16 6-25 [facility] [id number] 02:36:00 Test Item Value Reference Range Interpretation Comments U Preg (test code = U Negative (10/30/17 8:36 Preg) PM) [facility] [id number] 02:36:00 Test Item Value Reference Range Interpretation Comments eGFR (test code = eGFR) 72 [facility]2017-12-14 02:36:00 Test Item Value Reference Range Interpretation Comments ALANINE AMINOTRANSFERASE 55 See_Comment [A utomated message] (test code = ALANINE The sys tem which AMINOTRANSFERASE) generated this result transmitted ref erence range: <=65. Th e reference range was not used to int erpret this result as normal/abnormal . [facility]2017-12-14 02:36:00 Test Item Value Reference Range Interpretation Comments Alk Phos (test code = Alk Phos) 71 39-136 [facility]2017-12-14 02:36:00 Test Item Value Reference Range Interpretation Comments A/G Ratio (test code = A/G Ratio) 1.1 0.7-1.6 [facility]2017-12-14 02:36:00 Test Item Value Reference Range Interpretation Comments Albumin Lvl (test code = Albumin Lvl) 3.8 3.5-5.0 [facility]2017-12-14 02:36:00 Test Item Value Reference Range Interpretation Comments ASPARTATE TRANSAMINASE 33 See_Comment [Aut omated message] (test code = ASPARTATE The s ystem which TRANSAMINASE) generated this result transmitted ref erence range: <=37. Th e reference range was not used to interpr et this result as normal/abnormal . [facility]2017-12-14 02:36:00 Test Item Value Reference Range Interpretation Comments Bili Total (test code = Bili Total) 0.2 0.2-1.3 [facility]2017-12-14 02:36:00 Test Item Value Reference Range Interpretation Comments Potassium Lvl (test code = Potassium 4.2 3.5-5.1 Lvl) [facility]2017-12-14 02:36:00 Test Item Value Reference Range Interpretation Comments Calcium Lvl (test code = Calcium Lvl) 9.1 8.5-10.5 [facility]2017-12-14 02:36:00 Test Item Value Reference Range Interpretation Comments CO2 (test code = CO2) 31 24-32 [facility]2017-12-14 02:36:00 Test Item Value Reference Range Interpretation Comments Chloride Lvl (test code = Chloride Lvl) 103 95-109 [facility]2017-12-14 02:36:00 Test Item Value Reference Range Interpretation Comments Total Protein (test code = Total 7.3 6.4-8.4 Protein) [facility]2017-12-14 02:36:00 Test Item Value Reference Range Interpretation Comments BUN (test code = BUN) 16 7- [facility]2017-12-14 02:36:00 Test Item Value Reference Range Interpretation Comments Glucose Lvl (test code = Glucose Lvl) 99 70-99 [facility]2017-12-14 02:36:00 Test Item Value Reference Range Interpretation Comments Globulin (test code = Globulin) 3.5 2.7-4.2 [facility]2017-12-14 02:36:00 Test Item Value Reference Range Interpretation Comments Sodium Lvl (test code = Sodium Lvl) 137 135-145 [facility]2017-12-14 02:36:00 Test Item Value Reference Range Interpretation Comments Creatinine Lvl (test code = Creatinine 0.99 0.50-1.40 Lvl) [facility]2017-12-14 02:36:00 Test Item Value Reference Range Interpretation Comments AGAP (test code = AGAP) 7.2 10.0-20.0 [facility]2017-12-14 02:36:00 Test Item Value Reference Range Interpretation Comments B/C Ratio (test code = B/C Ratio) 16 6-25 [facility]2017-12-14 02:36:00 Test Item Value Reference Range Interpretation Comments A/G Ratio (test code = A/G Ratio) 1.1 0.7-1.6 [facility]2017-12-14 02:36:00 Test Item Value Reference Range Interpretation Comments Globulin (test code = Globulin) 3.5 2.7-4.[address] [facility] [place], [id number] 02:36:00 Test Item Value Reference Range Interpretation Comments Segs (test code = Segs) 69.2 45.0-75.[address] [facility] [place], TXKjjvruqYKFXJWIGCW9323-42-88 02:36:00 Test Item Value Reference Range Interpretation Comments Monocytes (test code = Monocytes) 6.3 2.0-12.[address] [facility] [place], TXWndzdboQDBRSDLYCM6136-63-90 02:36:00 Test Item Value Reference Range Interpretation Comments Lymphocytes (test code = Lymphocytes) 22.8 20.0-40.[address] [facility] [place], TXVkhhsudNORAJOHNST3321-47-28 02:36:00 Test Item Value Reference Range Interpretation Comments Basophils (test code = 0.5 See_Comment [Aut omated message] The Basophils) system which ge nerated this result tra nsmitted reference range : <=1.0. The reference r kishan was not used to int erpret this result as normal/abnormal . [facility] [place], TXXpyxpdnTHUNUHMTBP6155-60-37 02:36:00 Test Item Value Reference Range Interpretation Comments Segs (test code = Segs) 69.2 45.0-75.[address] [facility] [place], TXUbpjpauSPPHJSRRMF6551-40-83 02:36:00 Test Item Value Reference Range Interpretation Comments Basophils # (test code 0.1 See_Comment [Aut omated message] The = Basophils #) system which generated this result tra nsmitted reference range : <=0.2. The reference r kishan was not used to int erpret this result as normal/abnormal . [facility] [place], TXJmgdetcFODRMHDAGU3645-34-58 02:36:00 Test Item Value Reference Range Interpretation Comments Lymphocytes # (test code = Lymphocytes 2.7 1.0-5.5 #) [facility] [place], TXUxbzqhgEGOFMDYVPX3127-53-85 02:36:00 Test Item Value Reference Range Interpretation Comments Segs-Bands # (test code = Segs-Bands #) 8.1 1.5-8.[address] [facility] [place], TXQxrllkfGVFAMXSHSC3142-96-54 02:36:00 Test Item Value Reference Range Interpretation Comments Monocytes # (test code 0.7 See_Comment [Aut omated message] The = Monocytes #) system which generated this result tra nsmitted reference range : <=0.8. The reference r kishan was not used to int erpret this result as normal/abnormal . [facility] [place], TXWzzovmnOBNCFTRPLA0104-58-40 02:36:00 Test Item Value Reference Range Interpretation Comments Eosinophils (test code = 1.2 See_Comment [A utomated message] The Eosinophils) system which ge nerated this result tra nsmitted reference range : <=4.0. The reference r kishan was not used to int erpret this result as normal/abnormal . [facility] [place], TXWxswczqDUPPEATYXI8242-67-80 02:36:00 Test Item Value Reference Range Interpretation Comments Eosinophils # (test code 0.1 See_Comment [A utomated message] The = Eosinophils #) system whic h generated this result tra nsmitted reference range : <=0.5. The reference r kishan was not used to int erpret this result as normal/abnormal . [facility] [place], TXJiawgolOJCVMAKQXC3993-45-69 02:36:00 Test Item Value Reference Range Interpretation Comments MCHC (test code = MCHC) 33.5 32.0-36.[address] [facility] [place], TXXzrkcagPWMJKQDDDP0587-64-55 02:36:00 Test Item Value Reference Range Interpretation Comments RDW (test code = RDW) 13.2 11.5-14.[address] [facility] [place], TXBlgmstbWCRXNIFWUW5628-63-69 02:36:00 Test Item Value Reference Range Interpretation Comments Platelet (test code = Platelet) 239 133-[address] [facility] [place], TXUhwpoqyIILMDKWDYK2216-98-31 02:36:00 Test Item Value Reference Range Interpretation Comments MPV (test code = MPV) 9.0 7.4-10.[address] [facility] [place], TXLlftyckNSZTTEESAX9806-21-89 02:36:00 Test Item Value Reference Range Interpretation Comments Monocytes (test code = Monocytes) 6.3 2.0-12.[address] [facility] [place], TXHoqrohdOWLVWHNYUV6649-19-43 02:36:00 Test Item Value Reference Range Interpretation Comments Hgb (test code = Hgb) 14.8 12.0-16.[address] [facility] [place], TXWkzhlbvDEBTNTMVYD2887-05-82 02:36:00 Test Item Value Reference Range Interpretation Comments RBC X 10x6 (test code = RBC X 10x6) 4.92 4.20-5.[address] [facility] [place], TXIguylcqWIUVZJTLUS0839-89-56 02:36:00 Test Item Value Reference Range Interpretation Comments Hct (test code = Hct) 44.2 36.0-48.[address] [facility] [place], TXCqrfmwgNFNMDRISES0945-43-75 02:36:00 Test Item Value Reference Range Interpretation Comments MCV (test code = MCV) 89.8 80.0-98.[address] [facility] [place], TXQpbqhnoRXTWCGLVWC4797-01-34 02:36:00 Test Item Value Reference Range Interpretation Comments WBC X 10x3 (test code = WBC X 10x3) 11.7 3.7-10.[address] [facility] [place], TXDvfcaejAVFJUUKBUQ4915-59-31 02:36:00 Test Item Value Reference Range Interpretation Comments MCH (test code = MCH) 30.1 pg 27.0-31.0 [facility] AND [id number] 02:36:00 Test Item Value Reference Range Interpretation Comments UA Color (test code = Yellow *NA*(10/30/17 UA Color) 8:36 PM) [facility] AND [id number] 02:36:00 Test Item Value Reference Range Interpretation Comments UA Turbidity (test code = Clear (10/30/17 8:36 UA Turbidity) PM) [facility] AND [id number] 02:36:00 Test Item Value Reference Range Interpretation Comments UA Spec Grav (test code = UA Spec 1.010 1 Grav) [facility] AND [id number] 02:36:00 Test Item Value Reference Range Interpretation Comments UA Protein (test code = UA Negative mg/dL Protein) [facility] [place], TXGpuepesCXETSKLOZB2383-15-39 02:36:00 Test Item Value Reference Range Interpretation Comments Lymphocytes (test code = Lymphocytes) 22.8 20.0-40.0 [facility] AND [id number] 02:36:00 Test Item Value Reference Range Interpretation Comments UA Glucose (test code = UA Negative mg/dL Glucose) [facility] AND [id number] 02:36:00 Test Item Value Reference Range Interpretation Comments UA pH (test code = UA pH) 7.5 1 5.0-8.0 [facility] AND [id number] 02:36:00 Test Item Value Reference Range Interpretation Comments UA Ketones (test code = UA Negative mg/dL Ketones) [facility] AND [id number] 02:36:00 Test Item Value Reference Range Interpretation Comments UA Bili (test code = Negative *NA*(10/30/17 UA Bili) 8:36 PM) [facility] AND [id number] 02:36:00 Test Item Value Reference Range Interpretation Comments UA Leuk Est (test Negative (10/30/17 8:36 code = UA Leuk Est) PM) [facility] AND [id number] 02:36:00 Test Item Value Reference Range Interpretation Comments UA Urobilinogen (test code = UA 0.2 0.1-1.0 Urobilinogen) [facility] AND [id number] 02:36:00 Test Item Value Reference Range Interpretation Comments UA Nitrite (test code Negative (10/30/17 8:36 = UA Nitrite) PM) [facility] AND [id number] 02:36:00 Test Item Value Reference Range Interpretation Comments UA Blood (test code = Negative (10/30/17 8:36 UA Blood) PM) [facility] AND [id number] 02:36:00 Test Item Value Reference Range Interpretation Comments UA WBC (test code = UA WBC) 6-10 /HPF [facility] AND [id number] 02:36:00 Test Item Value Reference Range Interpretation Comments UA Bacteria (test code = UA Few /HPF Bacteria) [facility] 02:36:00 Test Item Value Reference Range Interpretation Comments Basophils (test code = 0.5 See_Comment [Aut omated message] The Basophils) system which ge nerated this result tra nsmitted reference range : <=1.0. The reference r kishan was not used to int erpret this result as normal/abnormal . [facility] AND [id number] 02:36:00 Test Item Value Reference Range Interpretation Comments UA RBC (test code = 0-2 /HPF See_Comment [Automa nicki message] The UA RBC) system which ge nerated this result tra nsmitted reference range : <=2. The reference range was not used to interpr et this result as sarahi l/abnormal. [facility] AND [id number] 02:36:00 Test Item Value Reference Range Interpretation Comments UA Sq Epi (test code = UA Sq Occasional /LPF Epi) [facility] [id number] 02:36:00 Test Item Value Reference Range Interpretation Comments U Preg (test code = U Negative (10/30/17 8:36 Preg) PM) [facility]2017-12-14 02:36:00 Test Item Value Reference Range Interpretation Comments eGFR (test code = eGFR) 72 [facility] 02:36:00 Test Item Value Reference Range Interpretation Comments Basophils # (test code 0.1 See_Comment [Aut omated message] The = Basophils #) system which generated this result tra nsmitted reference range : <=0.2. The reference r kishan was not used to int erpret this result as normal/abnormal . [facility]2017-12-14 02:36:00 Test Item Value Reference Range Interpretation Comments ALANINE AMINOTRANSFERASE 55 See_Comment [A utomated message] (test code = ALANINE The sys tem which AMINOTRANSFERASE) generated this result transmitted ref erence range: <=65. Th e reference range was not used to int erpret this result as normal/abnormal . [facility]2017-12-14 02:36:00 Test Item Value Reference Range Interpretation Comments Alk Phos (test code = Alk Phos) 71 39-136 [facility]2017-12-14 02:36:00 Test Item Value Reference Range Interpretation Comments Albumin Lvl (test code = Albumin Lvl) 3.8 3.5-5.0 [facility]2017-12-14 02:36:00 Test Item Value Reference Range Interpretation Comments ASPARTATE TRANSAMINASE 33 See_Comment [Aut omated message] (test code = ASPARTATE The s ystem which TRANSAMINASE) generated this result transmitted ref erence range: <=37. Th e reference range was not used to interpr et this result as normal/abnormal . [facility]2017-12-14 02:36:00 Test Item Value Reference Range Interpretation Comments Bili Total (test code = Bili Total) 0.2 0.2-1.3 [facility]2017-12-14 02:36:00 Test Item Value Reference Range Interpretation Comments Potassium Lvl (test code = Potassium 4.2 3.5-5.1 Lvl) [facility]2017-12-14 02:36:00 Test Item Value Reference Range Interpretation Comments Calcium Lvl (test code = Calcium Lvl) 9.1 8.5-10.5 [facility]2017-12-14 02:36:00 Test Item Value Reference Range Interpretation Comments CO2 (test code = CO2) 31 24-32 [facility]2017-12-14 02:36:00 Test Item Value Reference Range Interpretation Comments Chloride Lvl (test code = Chloride Lvl) 103 95-109 [facility]2017-12-14 02:36:00 Test Item Value Reference Range Interpretation Comments Total Protein (test code = Total 7.3 6.4-8.4 Protein) [facility] [place], TXZswgpalNQKSVCHTVN5151-96-04 02:36:00 Test Item Value Reference Range Interpretation Comments Lymphocytes # (test code = Lymphocytes 2.7 1.0-5.5 #) [facility]2017-12-14 02:36:00 Test Item Value Reference Range Interpretation Comments BUN (test code = BUN) 16 7- [facility]2017-12-14 02:36:00 Test Item Value Reference Range Interpretation Comments Glucose Lvl (test code = Glucose Lvl) 99 70-99 [facility]2017-12-14 02:36:00 Test Item Value Reference Range Interpretation Comments Sodium Lvl (test code = Sodium Lvl) 137 135-145 [facility]2017-12-14 02:36:00 Test Item Value Reference Range Interpretation Comments Creatinine Lvl (test code = Creatinine 0.99 0.50-1.40 Lvl) [facility]2017-12-14 02:36:00 Test Item Value Reference Range Interpretation Comments AGAP (test code = AGAP) 7.2 10.0-20.0 [facility]2017-12-14 02:36:00 Test Item Value Reference Range Interpretation Comments B/C Ratio (test code = B/C Ratio) 16 6-25 [facility]2017-12-14 02:36:00 Test Item Value Reference Range Interpretation Comments A/G Ratio (test code = A/G Ratio) 1.1 0.7-1.6 [facility]2017-12-14 02:36:00 Test Item Value Reference Range Interpretation Comments Globulin (test code = Globulin) 3.5 2.7-4.[address] [facility] [place], TXNncxfdaUFTPYQLIPU3229-09-72 02:36:00 Test Item Value Reference Range Interpretation Comments Segs (test code = Segs) 69.2 45.0-75.[address] [facility] [place], TXQxvebyxPDSWTNFVVJ2533-86-36 02:36:00 Test Item Value Reference Range Interpretation Comments Monocytes (test code = Monocytes) 6.3 2.0-12.[address] [facility] [place], TXHbtjanjILWKOOBRHM8284-93-88 02:36:00 Test Item Value Reference Range Interpretation Comments Segs-Bands # (test code = Segs-Bands #) 8.1 1.5-8.[address] [facility] [place], TXYhlysrhYHYIHOVMWV4594-63-25 02:36:00 Test Item Value Reference Range Interpretation Comments Lymphocytes (test code = Lymphocytes) 22.8 20.0-40.[address] [facility] [place], TXPkirbiyBNWMDOJHEH9145-04-53 02:36:00 Test Item Value Reference Range Interpretation Comments Basophils (test code = 0.5 See_Comment [Aut omated message] The Basophils) system which ge nerated this result tra nsmitted reference range : <=1.0. The reference r kishan was not used to int erpret this result as normal/abnormal . [facility] [place], TXIcwxfquSOTJEFMYTU8174-40-01 02:36:00 Test Item Value Reference Range Interpretation Comments Basophils # (test code 0.1 See_Comment [Aut omated message] The = Basophils #) system which generated this result tra nsmitted reference range : <=0.2. The reference r kishan was not used to int erpret this result as normal/abnormal . [facility] [place], TXLmusrzoLDNOQCYMYP2168-50-12 02:36:00 Test Item Value Reference Range Interpretation Comments Lymphocytes # (test code = Lymphocytes 2.7 1.0-5.5 #) [facility] [place], TXUpwukiiYMAISPPVUK6640-52-28 02:36:00 Test Item Value Reference Range Interpretation Comments Segs-Bands # (test code = Segs-Bands #) 8.1 1.5-8.[address] [facility] [place], [id number] 02:36:00 Test Item Value Reference Range Interpretation Comments Monocytes # (test code 0.7 See_Comment [Aut omated message] The = Monocytes #) system which generated this result tra nsmitted reference range : <=0.8. The reference r kishan was not used to int erpret this result as normal/abnormal . [facility] [place], TXScesyfjRTQNQWRTSB2176-99-48 02:36:00 Test Item Value Reference Range Interpretation Comments Eosinophils (test code = 1.2 See_Comment [A utomated message] The Eosinophils) system which ge nerated this result tra nsmitted reference range : <=4.0. The reference r kishan was not used to int erpret this result as normal/abnormal . [facility] [place], TXTjhfnspKJMVFJDNLQ2765-20-73 02:36:00 Test Item Value Reference Range Interpretation Comments Eosinophils # (test code 0.1 See_Comment [A utomated message] The = Eosinophils #) system whic h generated this result tra nsmitted reference range : <=0.5. The reference r kishan was not used to int erpret this result as normal/abnormal . [facility] [place], TXBmnctopVCZQPKELGD4683-93-27 02:36:00 Test Item Value Reference Range Interpretation Comments MCHC (test code = MCHC) 33.5 32.0-36.[address] [facility] [place], TXPafbyahOWYATMJEUN1549-66-92 02:36:00 Test Item Value Reference Range Interpretation Comments RDW (test code = RDW) 13.2 11.5-14.[address] [facility] [place], TXNqkgcoiBTQDZPJGKD7704-08-67 02:36:00 Test Item Value Reference Range Interpretation Comments Monocytes # (test code 0.7 See_Comment [Aut omated message] The = Monocytes #) system which generated this result tra nsmitted reference range : <=0.8. The reference r kishan was not used to int erpret this result as normal/abnormal . [facility] [place], TXQeaksrsRXFHETYAXU5294-21-70 02:36:00 Test Item Value Reference Range Interpretation Comments Platelet (test code = Platelet) 239 133-[address] [facility] [place], TXCxbvvisNTKKJUKLYV2234-41-18 02:36:00 Test Item Value Reference Range Interpretation Comments MPV (test code = MPV) 9.0 7.4-10.[address] [facility] [place], TXJtlfbcwEJDTJPEOTR8711-10-63 02:36:00 Test Item Value Reference Range Interpretation Comments Hgb (test code = Hgb) 14.8 12.0-16.[address] [facility] [place], TXVwmmdurOAGAEWQQYW0069-84-68 02:36:00 Test Item Value Reference Range Interpretation Comments RBC X 10x6 (test code = RBC X 10x6) 4.92 4.20-5.[address] [facility] [place], TXZsulzwbHKKSRIAOJS7311-35-23 02:36:00 Test Item Value Reference Range Interpretation Comments Hct (test code = Hct) 44.2 36.0-48.[address] [facility] [place], TXPpdrhiiRBPNOXDPFG6181-37-00 02:36:00 Test Item Value Reference Range Interpretation Comments MCV (test code = MCV) 89.8 80.0-98.[address] [facility] [place], TXEkofdggSYWNGOCQCM8240-39-87 02:36:00 Test Item Value Reference Range Interpretation Comments WBC X 10x3 (test code = WBC X 10x3) 11.7 3.7-10.[address] [facility] [place], TXGxyskchKENDQNFKND2885-39-66 02:36:00 Test Item Value Reference Range Interpretation Comments MCH (test code = MCH) 30.1 pg 27.0-31.0 [facility] AND [id number] 02:36:00 Test Item Value Reference Range Interpretation Comments UA Color (test code = Yellow *NA*(10/30/17 UA Color) 8:36 PM) [facility]2017-12-14 02:36:00 Test Item Value Reference Range Interpretation Comments UA Turbidity (test code = Clear (10/30/17 8:36 UA Turbidity) PM) [facility] [place], TXCsyoepfBRKAVMCQKD1987-09-40 02:36:00 Test Item Value Reference Range Interpretation Comments Eosinophils (test code = 1.2 See_Comment [A utomated message] The Eosinophils) system which ge nerated this result tra nsmitted reference range : <=4.0. The reference r kishan was not used to int erpret this result as normal/abnormal . [facility] AND [id number] 02:36:00 Test Item Value Reference Range Interpretation Comments UA Spec Grav (test code = UA Spec 1.010 1 Grav) [facility] AND [id number] 02:36:00 Test Item Value Reference Range Interpretation Comments UA Protein (test code = UA Negative mg/dL Protein) [facility] AND [id number] 02:36:00 Test Item Value Reference Range Interpretation Comments UA Glucose (test code = UA Negative mg/dL Glucose) [facility] AND [id number] 02:36:00 Test Item Value Reference Range Interpretation Comments UA pH (test code = UA pH) 7.5 1 5.0-8.0 [facility] AND [id number] 02:36:00 Test Item Value Reference Range Interpretation Comments UA Ketones (test code = UA Negative mg/dL Ketones) [facility] AND [id number] 02:36:00 Test Item Value Reference Range Interpretation Comments UA Bili (test code = Negative *NA*(10/30/17 UA Bili) 8:36 PM) [facility] AND [id number] 02:36:00 Test Item Value Reference Range Interpretation Comments UA Leuk Est (test Negative (10/30/17 8:36 code = UA Leuk Est) PM) [facility] AND [id number] 02:36:00 Test Item Value Reference Range Interpretation Comments UA Urobilinogen (test code = UA 0.2 0.1-1.0 Urobilinogen) [facility] AND [id number] 02:36:00 Test Item Value Reference Range Interpretation Comments UA Nitrite (test code Negative (10/30/17 8:36 = UA Nitrite) PM) [facility] AND [id number] 02:36:00 Test Item Value Reference Range Interpretation Comments UA Blood (test code = Negative (10/30/17 8:36 UA Blood) PM) [id number] 02:36:00 Test Item Value Reference Range Interpretation Comments Eosinophils # (test code 0.1 See_Comment [A utomated message] The = Eosinophils #) system whic h generated this result tra nsmitted reference range : <=0.5. The reference r kishan was not used to int erpret this result as normal/abnormal . [facility] AND [id number] 02:36:00 Test Item Value Reference Range Interpretation Comments UA WBC (test code = UA WBC) 6-10 /HPF [facility] AND [id number] 02:36:00 Test Item Value Reference Range Interpretation Comments UA Bacteria (test code = UA Few /HPF Bacteria) [facility] AND [id number] 02:36:00 Test Item Value Reference Range Interpretation Comments UA RBC (test code = 0-2 /HPF See_Comment [Automa nicki message] The UA RBC) system which ge nerated this result tra nsmitted reference range : <=2. The reference range was not used to interpr et this result as sarahi l/abnormal. [facility] AND [id number] 02:36:00 Test Item Value Reference Range Interpretation Comments UA Sq Epi (test code = UA Sq Occasional /LPF Epi) [facility] [id number] 02:36:00 Test Item Value Reference Range Interpretation Comments U Preg (test code = U Negative (10/30/17 8:36 Preg) PM) [facility]befgkeUJIXMRDMSR2666-63-81 02:36:00 Test Item Value Reference Range Interpretation Comments MCHC (test code = MCHC) 33.5 32.0-36.0 [facility]2017-12-14 02:36:00 Test Item Value Reference Range Interpretation Comments eGFR (test code = eGFR) 72 [facility]2017-12-14 02:36:00 Test Item Value Reference Range Interpretation Comments ALANINE AMINOTRANSFERASE 55 See_Comment [A utomated message] (test code = ALANINE The sys tem which AMINOTRANSFERASE) generated this result transmitted ref erence range: <=65. Th e reference range was not used to int erpret this result as normal/abnormal . [facility]2017-12-14 02:36:00 Test Item Value Reference Range Interpretation Comments Alk Phos (test code = Alk Phos) 71 39-136 [facility]2017-12-14 02:36:00 Test Item Value Reference Range Interpretation Comments Albumin Lvl (test code = Albumin Lvl) 3.8 3.5-5.0 [facility]2017-12-14 02:36:00 Test Item Value Reference Range Interpretation Comments ASPARTATE TRANSAMINASE 33 See_Comment [Aut omated message] (test code = ASPARTATE The s ystem which TRANSAMINASE) generated this result transmitted ref erence range: <=37. Th e reference range was not used to interpr et this result as normal/abnormal . [facility]2017-12-14 02:36:00 Test Item Value Reference Range Interpretation Comments Bili Total (test code = Bili Total) 0.2 0.2-1.3 [facility]2017-12-14 02:36:00 Test Item Value Reference Range Interpretation Comments Potassium Lvl (test code = Potassium 4.2 3.5-5.1 Lvl) [facility]2017-12-14 02:36:00 Test Item Value Reference Range Interpretation Comments Calcium Lvl (test code = Calcium Lvl) 9.1 8.5-10.5 [facility]2017-12-14 02:36:00 Test Item Value Reference Range Interpretation Comments CO2 (test code = CO2) 31 24-[address] [facility] [place], [id number] 02:36:00 Test Item Value Reference Range Interpretation Comments RDW (test code = RDW) 13.2 11.5-14.5 [facility]2017-12-14 02:36:00 Test Item Value Reference Range Interpretation Comments Chloride Lvl (test code = Chloride Lvl) 103 95-109 [facility]2017-12-14 02:36:00 Test Item Value Reference Range Interpretation Comments Total Protein (test code = Total 7.3 6.4-8.4 Protein) [facility]2017-12-14 02:36:00 Test Item Value Reference Range Interpretation Comments BUN (test code = BUN) 16 - [facility]2017-12-14 02:36:00 Test Item Value Reference Range Interpretation Comments Glucose Lvl (test code = Glucose Lvl) 99 70-99 [facility]2017-12-14 02:36:00 Test Item Value Reference Range Interpretation Comments Sodium Lvl (test code = Sodium Lvl) 137 135-145 [facility]2017-12-14 02:36:00 Test Item Value Reference Range Interpretation Comments Creatinine Lvl (test code = Creatinine 0.99 0.50-1.40 Lvl) [facility]2017-12-14 02:36:00 Test Item Value Reference Range Interpretation Comments AGAP (test code = AGAP) 7.2 10.0-20.0 [facility]2017-12-14 02:36:00 Test Item Value Reference Range Interpretation Comments B/C Ratio (test code = B/C Ratio) 16 6-25 [facility]2017-12-14 02:36:00 Test Item Value Reference Range Interpretation Comments A/G Ratio (test code = A/G Ratio) 1.1 0.7-1.6 [place] [id number] 02:36:00 Test Item Value Reference Range Interpretation Comments Globulin (test code = Globulin) 3.5 2.7-4.[address] [facility] [place], TXPacugoyWIUQMKMMDR6378-49-53 02:36:00 Test Item Value Reference Range Interpretation Comments Platelet (test code = Platelet) 239 133-[address] [facility] [place], TXErgbeywPNSLAFJQQN6893-75-67 02:36:00 Test Item Value Reference Range Interpretation Comments Segs (test code = Segs) 69.2 45.0-75.[address] [facility] [place], TXBcwjrbrGYDXBTYXMB4834-86-98 02:36:00 Test Item Value Reference Range Interpretation Comments Monocytes (test code = Monocytes) 6.3 2.0-12.[address] [facility] [place], TXBjqosasESLUCWHPQX2159-69-82 02:36:00 Test Item Value Reference Range Interpretation Comments Lymphocytes (test code = Lymphocytes) 22.8 20.0-40.[address] [facility] [place], TXWnpilvcXVLVZTERUO6342-99-47 02:36:00 Test Item Value Reference Range Interpretation Comments Basophils (test code = 0.5 See_Comment [Aut omated message] The Basophils) system which ge nerated this result tra nsmitted reference range : <=1.0. The reference r kishan was not used to int erpret this result as normal/abnormal . [facility] [place], TXYimqjrvJFEUFSIRYM9585-30-23 02:36:00 Test Item Value Reference Range Interpretation Comments Basophils # (test code 0.1 See_Comment [Aut omated message] The = Basophils #) system which generated this result tra nsmitted reference range : <=0.2. The reference r kishan was not used to int erpret this result as normal/abnormal . [facility] [place], TXLdppeqqPTADYLRTOW9303-99-32 02:36:00 Test Item Value Reference Range Interpretation Comments Lymphocytes # (test code = Lymphocytes 2.7 1.0-5.5 #) [facility] [place], TXPclntkuGQGVOTDQLM5436-91-35 02:36:00 Test Item Value Reference Range Interpretation Comments Segs-Bands # (test code = Segs-Bands #) 8.1 1.5-8.[address] [facility] [place], TXRpanqtfWKFHPZAFVX5232-08-92 02:36:00 Test Item Value Reference Range Interpretation Comments Monocytes # (test code 0.7 See_Comment [Aut omated message] The = Monocytes #) system which generated this result tra nsmitted reference range : <=0.8. The reference r kishan was not used to int erpret this result as normal/abnormal . [facility] [place], TXYkofufuBHGOGTSLRT0988-62-03 02:36:00 Test Item Value Reference Range Interpretation Comments Eosinophils (test code = 1.2 See_Comment [A utomated message] The Eosinophils) system which ge nerated this result tra nsmitted reference range : <=4.0. The reference r kishan was not used to int erpret this result as normal/abnormal . [facility] [place], TXFpyetimJLQRQSAHZI6214-20-88 02:36:00 Test Item Value Reference Range Interpretation Comments Eosinophils # (test code 0.1 See_Comment [A utomated message] The = Eosinophils #) system whic h generated this result tra nsmitted reference range : <=0.5. The reference r kishan was not used to int erpret this result as normal/abnormal . [facility] [place], TXKksmnkpNYHWSJPAIO4384-62-87 02:36:00 Test Item Value Reference Range Interpretation Comments MPV (test code = MPV) 9.0 7.4-10.[address] [facility] [place], TXPujywybCCBFTDCSQP9289-83-29 02:36:00 Test Item Value Reference Range Interpretation Comments MCHC (test code = MCHC) 33.5 32.0-36.[address] [facility] [place], TXWrldrtpIMAOWQRRVR5975-49-96 02:36:00 Test Item Value Reference Range Interpretation Comments RDW (test code = RDW) 13.2 11.5-14.[address] [facility] [place], TXYfuhufrGUVDXPNLNR6094-38-87 02:36:00 Test Item Value Reference Range Interpretation Comments Platelet (test code = Platelet) 239 133-[address] [facility] [place], TXTnqwywhIQLXZHZXUA6833-63-94 02:36:00 Test Item Value Reference Range Interpretation Comments MPV (test code = MPV) 9.0 7.4-10.[address] [facility] [place], TXLdyrzaqLDOZDGSMBX3155-62-12 02:36:00 Test Item Value Reference Range Interpretation Comments Hgb (test code = Hgb) 14.8 12.0-16.[address] [facility] [place], TXMoejimlBIDTAKDLCA5102-86-80 02:36:00 Test Item Value Reference Range Interpretation Comments RBC X 10x6 (test code = RBC X 10x6) 4.92 4.20-5.[address] [facility] [place], TXOycjysnSPOFLPIPZA8430-74-93 02:36:00 Test Item Value Reference Range Interpretation Comments Hct (test code = Hct) 44.2 36.0-48.[address] [facility] [place], TXGzcqtucMXKCQEAEPM6346-95-03 02:36:00 Test Item Value Reference Range Interpretation Comments MCV (test code = MCV) 89.8 80.0-98.[address] [facility] [place], TXBsqayuxXGOBCDLNMO2832-53-34 02:36:00 Test Item Value Reference Range Interpretation Comments WBC X 10x3 (test code = WBC X 10x3) 11.7 3.7-10.[address] [facility] [place], TXZrhqmhnAJOAKHJNAO1555-30-22 02:36:00 Test Item Value Reference Range Interpretation Comments MCH (test code = MCH) 30.1 pg 27.0-31.[address] [facility] [place], TXVebwtddSOQEZTAZCI0113-73-19 02:36:00 Test Item Value Reference Range Interpretation Comments Hgb (test code = Hgb) 14.8 12.0-16.0 [facility] AND [id number] 02:36:00 Test Item Value Reference Range Interpretation Comments UA Color (test code = Yellow *NA*(10/30/17 UA Color) 8:36 PM) [facility] AND [id number] 02:36:00 Test Item Value Reference Range Interpretation Comments UA Turbidity (test code = Clear (10/30/17 8:36 UA Turbidity) PM) [facility] AND [id number] 02:36:00 Test Item Value Reference Range Interpretation Comments UA Spec Grav (test code = UA Spec 1.010 1 Grav) [facility] AND [id number] 02:36:00 Test Item Value Reference Range Interpretation Comments UA Protein (test code = UA Negative mg/dL Protein) [facility] AND [id number] 02:36:00 Test Item Value Reference Range Interpretation Comments UA Glucose (test code = UA Negative mg/dL Glucose) [facility] AND [id number] 02:36:00 Test Item Value Reference Range Interpretation Comments UA pH (test code = UA pH) 7.5 1 5.0-8.0 [facility] AND [id number] 02:36:00 Test Item Value Reference Range Interpretation Comments UA Ketones (test code = UA Negative mg/dL Ketones) [facility] AND [id number] 02:36:00 Test Item Value Reference Range Interpretation Comments UA Bili (test code = Negative *NA*(10/30/17 UA Bili) 8:36 PM) [facility] AND [id number] 02:36:00 Test Item Value Reference Range Interpretation Comments UA Leuk Est (test Negative (10/30/17 8:36 code = UA Leuk Est) PM) [facility] AND [id number] 02:36:00 Test Item Value Reference Range Interpretation Comments UA Urobilinogen (test code = UA 0.2 0.1-1.0 Urobilinogen) [facility] QlbfeyhTCHQHMNPMN9383-29-46 02:36:00 Test Item Value Reference Range Interpretation Comments RBC X 10x6 (test code = RBC X 10x6) 4.92 4.20-5.40 [facility] AND [id number] 02:36:00 Test Item Value Reference Range Interpretation Comments UA Nitrite (test code Negative (10/30/17 8:36 = UA Nitrite) PM) [facility] AND [id number] 02:36:00 Test Item Value Reference Range Interpretation Comments UA Blood (test code = Negative (10/30/17 8:36 UA Blood) PM) [facility] AND [id number] 02:36:00 Test Item Value Reference Range Interpretation Comments UA WBC (test code = UA WBC) 6-10 /HPF [facility] AND [id number] 02:36:00 Test Item Value Reference Range Interpretation Comments UA Bacteria (test code = UA Few /HPF Bacteria) [facility] AND [id number] 02:36:00 Test Item Value Reference Range Interpretation Comments UA RBC (test code = 0-2 /HPF See_Comment [Automa nicki message] The UA RBC) system which ge nerated this result tra nsmitted reference range : <=2. The reference range was not used to interpr et this result as sarahi l/abnormal. [facility] AND [id number] 02:36:00 Test Item Value Reference Range Interpretation Comments UA Sq Epi (test code = UA Sq Occasional /LPF Epi) [facility] [id number] 02:36:00 Test Item Value Reference Range Interpretation Comments U Preg (test code = U Negative (10/30/17 8:36 Preg) PM) [facility] [place], TXHwfipnqBHUXGONAVK4273-15-47 02:36:00 Test Item Value Reference Range Interpretation Comments Hct (test code = Hct) 44.2 36.0-48.0 [facility]2017-12-14 02:36:00 Test Item Value Reference Range Interpretation Comments eGFR (test code = eGFR) 72 [facility]2017-12-14 02:36:00 Test Item Value Reference Range Interpretation Comments ALANINE AMINOTRANSFERASE 55 See_Comment [A utomated message] (test code = ALANINE The sys tem which AMINOTRANSFERASE) generated this result transmitted ref erence range: <=65. Th e reference range was not used to int erpret this result as normal/abnormal . [facility]2017-12-14 02:36:00 Test Item Value Reference Range Interpretation Comments Alk Phos (test code = Alk Phos) 71 39-136 [facility]2017-12-14 02:36:00 Test Item Value Reference Range Interpretation Comments Albumin Lvl (test code = Albumin Lvl) 3.8 3.5-5.0 [facility]2017-12-14 02:36:00 Test Item Value Reference Range Interpretation Comments ASPARTATE TRANSAMINASE 33 See_Comment [Aut omated message] (test code = ASPARTATE The s ystem which TRANSAMINASE) generated this result transmitted ref erence range: <=37. Th e reference range was not used to interpr et this result as normal/abnormal . [facility]2017-12-14 02:36:00 Test Item Value Reference Range Interpretation Comments Bili Total (test code = Bili Total) 0.2 0.2-1.3 [facility]2017-12-14 02:36:00 Test Item Value Reference Range Interpretation Comments Potassium Lvl (test code = Potassium 4.2 3.5-5.1 Lvl) [facility] [place], [id number] 02:36:00 Test Item Value Reference Range Interpretation Comments MCV (test code = MCV) 89.8 80.0-98.0 [place] [id number] 02:36:00 Test Item Value Reference Range Interpretation Comments Calcium Lvl (test code = Calcium Lvl) 9.1 8.5-10.5 [facility]2017-12-14 02:36:00 Test Item Value Reference Range Interpretation Comments CO2 (test code = CO2) 31 24-32 [facility]2017-12-14 02:36:00 Test Item Value Reference Range Interpretation Comments Chloride Lvl (test code = Chloride Lvl) 103 95-109 [facility]2017-12-14 02:36:00 Test Item Value Reference Range Interpretation Comments Total Protein (test code = Total 7.3 6.4-8.4 Protein) [facility]2017-12-14 02:36:00 Test Item Value Reference Range Interpretation Comments BUN (test code = BUN) 16 7-22 [facility]2017-12-14 02:36:00 Test Item Value Reference Range Interpretation Comments Glucose Lvl (test code = Glucose Lvl) 99 70-99 [facility]2017-12-14 02:36:00 Test Item Value Reference Range Interpretation Comments Sodium Lvl (test code = Sodium Lvl) 137 135-145 [facility]2017-12-14 02:36:00 Test Item Value Reference Range Interpretation Comments Creatinine Lvl (test code = Creatinine 0.99 0.50-1.40 Lvl) [facility]2017-12-14 02:36:00 Test Item Value Reference Range Interpretation Comments AGAP (test code = AGAP) 7.2 10.0-20.0 [facility]2017-12-14 02:36:00 Test Item Value Reference Range Interpretation Comments B/C Ratio (test code = B/C Ratio) 16 6-[address] [facility] [place], TXFiguajsLWDBXIGPLW2409-61-97 02:36:00 Test Item Value Reference Range Interpretation Comments WBC X 10x3 (test code = WBC X 10x3) 11.7 3.7-10.4 [facility]2017-12-14 02:36:00 Test Item Value Reference Range Interpretation Comments A/G Ratio (test code = A/G Ratio) 1.1 0.7-1.6 [facility]2017-12-14 02:36:00 Test Item Value Reference Range Interpretation Comments Globulin (test code = Globulin) 3.5 2.7-4.[address] [facility] [place], [id number] 02:36:00 Test Item Value Reference Range Interpretation Comments Segs (test code = Segs) 69.2 45.0-75.[address] [facility] [place], TXAowaalcIWTGYWAXUM2014-58-42 02:36:00 Test Item Value Reference Range Interpretation Comments Monocytes (test code = Monocytes) 6.3 2.0-12.[address] [facility] [place], TXRskzatuDKGGIBIICZ9502-04-07 02:36:00 Test Item Value Reference Range Interpretation Comments Lymphocytes (test code = Lymphocytes) 22.8 20.0-40.[address] [facility] [place], TXIcueuujJBOZDUHNTN2870-75-05 02:36:00 Test Item Value Reference Range Interpretation Comments Basophils (test code = 0.5 See_Comment [Aut omated message] The Basophils) system which ge nerated this result tra nsmitted reference range : <=1.0. The reference r kishan was not used to int erpret this result as normal/abnormal . [facility] [place], TXBooicsuRWRTWRFLPI6497-82-09 02:36:00 Test Item Value Reference Range Interpretation Comments Basophils # (test code 0.1 See_Comment [Aut omated message] The = Basophils #) system which generated this result tra nsmitted reference range : <=0.2. The reference r kishan was not used to int erpret this result as normal/abnormal . [facility] [place], TXIumywkcTJTQRVIDNU7993-97-76 02:36:00 Test Item Value Reference Range Interpretation Comments Lymphocytes # (test code = Lymphocytes 2.7 1.0-5.5 #) [facility] [place], TXLqqompbYRDIFIMVNA2748-60-50 02:36:00 Test Item Value Reference Range Interpretation Comments Segs-Bands # (test code = Segs-Bands #) 8.1 1.5-8.[address] [facility] [place], TXFogstueDKRITYJNJJ6510-67-09 02:36:00 Test Item Value Reference Range Interpretation Comments Monocytes # (test code 0.7 See_Comment [Aut omated message] The = Monocytes #) system which generated this result tra nsmitted reference range : <=0.8. The reference r kishan was not used to int erpret this result as normal/abnormal . [facility] [place], TXSxkggjfVLKUEIKJVN8617-26-28 02:36:00 Test Item Value Reference Range Interpretation Comments MCH (test code = MCH) 30.1 pg 27.0-31.[address] [facility] [place], TXLgtdfwrXKBFHECSSD4587-93-46 02:36:00 Test Item Value Reference Range Interpretation Comments Eosinophils (test code = 1.2 See_Comment [A utomated message] The Eosinophils) system which ge nerated this result tra nsmitted reference range : <=4.0. The reference r kishan was not used to int erpret this result as normal/abnormal . [facility] [place], TXRiojwtjWMHPIWSXDM4242-06-95 02:36:00 Test Item Value Reference Range Interpretation Comments Eosinophils # (test code 0.1 See_Comment [A utomated message] The = Eosinophils #) system whic h generated this result tra nsmitted reference range : <=0.5. The reference r kishan was not used to int erpret this result as normal/abnormal . [facility] [place], TXXxdwkhtQREKIVRRGA2237-26-88 02:36:00 Test Item Value Reference Range Interpretation Comments MCHC (test code = MCHC) 33.5 32.0-36.[address] [facility] [place], TXCqmbjgxPADWWLNZLL2077-45-53 02:36:00 Test Item Value Reference Range Interpretation Comments RDW (test code = RDW) 13.2 11.5-14.[address] [facility] [place], TXKdulnfuLWEZJPZSDC3021-49-70 02:36:00 Test Item Value Reference Range Interpretation Comments Platelet (test code = Platelet) 239 133-[address] [facility] [place], TXSjnzldqMBGHCRGRXC6143-02-23 02:36:00 Test Item Value Reference Range Interpretation Comments MPV (test code = MPV) 9.0 7.4-10.[address] [facility] [place], TXTckbndxDHEGNXVUNZ8847-66-66 02:36:00 Test Item Value Reference Range Interpretation Comments Hgb (test code = Hgb) 14.8 12.0-16.[address] [facility] [place], TXZgqvccrQSCCZWOYBU0394-45-38 02:36:00 Test Item Value Reference Range Interpretation Comments RBC X 10x6 (test code = RBC X 10x6) 4.92 4.20-5.[address] [facility] [place], TXKxrrkqtZVCMVPNSVB0112-59-72 02:36:00 Test Item Value Reference Range Interpretation Comments Hct (test code = Hct) 44.2 36.0-48.[address] [facility] [place], TXBfasbbiTUWJYXCPPD7102-21-32 02:36:00 Test Item Value Reference Range Interpretation Comments MCV (test code = MCV) 89.8 80.0-98.0 [facility]2017-12-14 02:36:00 Test Item Value Reference Range Interpretation Comments UA Color (test code = Yellow *NA*(10/30/17 UA Color) 8:36 PM) [facility] [place], TXNrdpxbtYCZABPCVKZ2758-99-09 02:36:00 Test Item Value Reference Range Interpretation Comments WBC X 10x3 (test code = WBC X 10x3) 11.7 3.7-10.[address] [facility] [place], TXWunoksuKBDLPGHLHL4919-43-86 02:36:00 Test Item Value Reference Range Interpretation Comments MCH (test code = MCH) 30.1 pg 27.0-31.0 [facility] AND [id number] 02:36:00 Test Item Value Reference Range Interpretation Comments UA Color (test code = Yellow *NA*(10/30/17 UA Color) 8:36 PM) [facility] AND [id number] 02:36:00 Test Item Value Reference Range Interpretation Comments UA Turbidity (test code = Clear (10/30/17 8:36 UA Turbidity) PM) [facility] AND [id number] 02:36:00 Test Item Value Reference Range Interpretation Comments UA Spec Grav (test code = UA Spec 1.010 1 Grav) [facility] AND [id number] 02:36:00 Test Item Value Reference Range Interpretation Comments UA Protein (test code = UA Negative mg/dL Protein) [facility] AND [id number] 02:36:00 Test Item Value Reference Range Interpretation Comments UA Glucose (test code = UA Negative mg/dL Glucose) [facility] AND [id number] 02:36:00 Test Item Value Reference Range Interpretation Comments UA pH (test code = UA pH) 7.5 1 5.0-8.0 [facility] AND [id number] 02:36:00 Test Item Value Reference Range Interpretation Comments UA Ketones (test code = UA Negative mg/dL Ketones) [facility] AND [id number] 02:36:00 Test Item Value Reference Range Interpretation Comments UA Bili (test code = Negative *NA*(10/30/17 UA Bili) 8:36 PM) [facility] AND [id number] 02:36:00 Test Item Value Reference Range Interpretation Comments UA Turbidity (test code = Clear (10/30/17 8:36 UA Turbidity) PM) [facility] AND [id number] 02:36:00 Test Item Value Reference Range Interpretation Comments UA Leuk Est (test Negative (10/30/17 8:36 code = UA Leuk Est) PM) [facility] [id number] 02:36:00 Test Item Value Reference Range Interpretation Comments UA Urobilinogen (test code = UA 0.2 0.1-1.0 Urobilinogen) [facility] [id number] 02:36:00 Test Item Value Reference Range Interpretation Comments UA Nitrite (test code Negative (10/30/17 8:36 = UA Nitrite) PM) [facility] [id number] 02:36:00 Test Item Value Reference Range Interpretation Comments UA Blood (test code = Negative (10/30/17 8:36 UA Blood) PM) [facility] [id number] 02:36:00 Test Item Value Reference Range Interpretation Comments UA WBC (test code = UA WBC) 6-10 /HPF [facility] [id number] 02:36:00 Test Item Value Reference Range Interpretation Comments UA Bacteria (test code = UA Few /HPF Bacteria) [facility] [id number] 02:36:00 Test Item Value Reference Range Interpretation Comments UA RBC (test code = 0-2 /HPF See_Comment [Automa nicki message] The UA RBC) system which ge nerated this result tra nsmitted reference range : <=2. The reference range was not used to interpr et this result as sarahi l/abnormal. [facility] [id number] 02:36:00 Test Item Value Reference Range Interpretation Comments UA Sq Epi (test code = UA Sq Occasional /LPF Epi) [facility] [id number] 02:36:00 Test Item Value Reference Range Interpretation Comments U Preg (test code = U Negative (10/30/17 8:36 Preg) PM) [facility] [id number] 02:36:00 Test Item Value Reference Range Interpretation Comments UA Spec Grav (test code = UA Spec 1.010 1 Grav) [facility] [id number] 02:36:00 Test Item Value Reference Range Interpretation Comments UA Protein (test code = UA Negative mg/dL Protein) [facility] [id number] 02:36:00 Test Item Value Reference Range Interpretation Comments UA Glucose (test code = UA Negative mg/dL Glucose) [facility] AND [id number] 02:36:00 Test Item Value Reference Range Interpretation Comments UA pH (test code = UA pH) 7.5 1 5.0-8.0 [facility] AND [id number] 02:36:00 Test Item Value Reference Range Interpretation Comments UA Ketones (test code = UA Negative mg/dL Ketones) [facility] AND [id number] 02:36:00 Test Item Value Reference Range Interpretation Comments UA Bili (test code = Negative *NA*(10/30/17 UA Bili) 8:36 PM) [facility] AND [id number] 02:36:00 Test Item Value Reference Range Interpretation Comments UA Leuk Est (test Negative (10/30/17 8:36 code = UA Leuk Est) PM) [facility] AND [id number] 02:36:00 Test Item Value Reference Range Interpretation Comments UA Urobilinogen (test code = UA 0.2 0.1-1.0 Urobilinogen) [facility] AND [id number] 02:36:00 Test Item Value Reference Range Interpretation Comments UA Nitrite (test code Negative (10/30/17 8:36 = UA Nitrite) PM) [facility] AND [id number] 02:36:00 Test Item Value Reference Range Interpretation Comments UA Blood (test code = Negative (10/30/17 8:36 UA Blood) PM) [facility] AND [id number] 02:36:00 Test Item Value Reference Range Interpretation Comments UA WBC (test code = UA WBC) 6-10 /HPF [facility] AND [id number] 02:36:00 Test Item Value Reference Range Interpretation Comments UA Bacteria (test code = UA Few /HPF Bacteria) [facility] AND [id number] 02:36:00 Test Item Value Reference Range Interpretation Comments UA RBC (test code = 0-2 /HPF See_Comment [Automa nicki message] The UA RBC) system which ge nerated this result tra nsmitted reference range : <=2. The reference range was not used to interpr et this result as sarahi l/abnormal. [facility] AND [id number] 02:36:00 Test Item Value Reference Range Interpretation Comments UA Sq Epi (test code = UA Sq Occasional /LPF Epi) [id number]00 Test Item Value Reference Range Interpretation Comments U Preg (test code = U Negative (10/30/17 8:36 Preg) PM) [facility] [id number] 02:36:00 Test Item Value Reference Range Interpretation Comments eGFR (test code = eGFR) 72 [facility] [id number] 02:36:00 Test Item Value Reference Range Interpretation Comments ALANINE AMINOTRANSFERASE 55 See_Comment [A utomated message] (test code = ALANINE The sys tem which AMINOTRANSFERASE) generated this result transmitted ref erence range: <=65. Th e reference range was not used to int erpret this result as normal/abnormal . [facility]2017-12-14 02:36:00 Test Item Value Reference Range Interpretation Comments Alk Phos (test code = Alk Phos) 71 39-136 [facility]2017-12-14 02:36:00 Test Item Value Reference Range Interpretation Comments Albumin Lvl (test code = Albumin Lvl) 3.8 3.5-5.0 [facility]2017-12-14 02:36:00 Test Item Value Reference Range Interpretation Comments ASPARTATE TRANSAMINASE 33 See_Comment [Aut omated message] (test code = ASPARTATE The s ystem which TRANSAMINASE) generated this result transmitted ref erence range: <=37. Th e reference range was not used to interpr et this result as normal/abnormal . [facility]2017-12-14 02:36:00 Test Item Value Reference Range Interpretation Comments Bili Total (test code = Bili Total) 0.2 0.2-1.3 [facility]2017-12-14 02:36:00 Test Item Value Reference Range Interpretation Comments Potassium Lvl (test code = Potassium 4.2 3.5-5.1 Lvl) [facility]2017-12-14 02:36:00 Test Item Value Reference Range Interpretation Comments Calcium Lvl (test code = Calcium Lvl) 9.1 8.5-10.5 [facility]2017-12-14 02:36:00 Test Item Value Reference Range Interpretation Comments CO2 (test code = CO2) 31 24-32 [facility] [id number] 02:36:00 Test Item Value Reference Range Interpretation Comments Chloride Lvl (test code = Chloride Lvl) 103 95-109 [facility]2017-12-14 02:36:00 Test Item Value Reference Range Interpretation Comments Total Protein (test code = Total 7.3 6.4-8.4 Protein) [facility]2017-12-14 02:36:00 Test Item Value Reference Range Interpretation Comments BUN (test code = BUN) 16 - [facility] Notes Date/Time Note Provider Source 2017-10-30 21:00:00-00:00 Patient Name: HUNTER VÁZQUEZ [facility] : 1975; Age: 42 years y/o Female MR: [id number] * COMPUTED TOMOGRAPHY SCAN OF THE CERVICAL SPINE without contrast Clinical Indication: Neck pain with radiculopath y. Comparison: None TECHNIQUE: Helical CT images were obtained through the cervical spine from the skull base to the thoracic inlet utilizing a multidetector helical CT scanner. Intravenous contrast was not administered. S agittal and coronal reconstructions were provide d. CT radiation dose DLP: 494 mGy-cm FINDINGS: The prevertebral soft tissues are normal in appe arance. The other soft tissue structures are unremarkabl e. There is no evidence of frac ture, dislocation, or other acute osseous abnormality. There are very mild degenera tive changes at C5-C6 with mild disc space narrowing and minimal osteophyte formation. There are no other significant degenerative changes involving the cervical cervical spine. The spinal canal is normal in caliber. The vertebral bodies are nor mal in height. There are no compression deformities or destructive lesions. IMPRESSION: 1. Mild degenerative disc disease at C5-C6. 2. No other significant osseous abnormalities ar e seen. 3. If there is a radiculopat hy or myelopathy or persistent symptoms, magnetic resonance imaging of the cervical spine (if not contraindicated) is suggested. 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 TECHNIQUE: Volumetric CT acq uisition of the lumbar spine without contrast. Axial, sagittal and coronal reconstructions. CT Radiation Dose: DLP = 794.05 mGy-cm. FINDINGS: The normal lumbar lordosis i s preserved. No abnormalities in sagittal alignment are identified. Levoscoliotic curvature of the lower lumbar spine is visualized. The vertebral body heights are maintained , without evidence for fract ure or malalignment. Evaluation of the spinal canal and distal nerve roots is limited on this noncontrast CT examination. Degenerative changes of the lumbar spine are as follows: L1-L2: No significant degene rative change, without spinal canal or neural foraminal stenosis. L2-L3: No significant degene rative change, without spinal canal or neural foraminal stenosis. L3-L4: Mild facet arthropath y and hypertrophy of the ligamentum flavum. There is mild spinal canal stenosis without evidence for neural foraminal stenosis. L4-L5: Moderate disc space n arrowing with a diffuse disc bulge, facet arthropathy, and hypertrophy of the ligamentum flavum. There is mild to moderate spinal canal stenosis as well as moderate to severe right and nivl-cv-ukfkinmb left neural foramina l stenosis. L5-S1: Mild facet arthropath y is visualized. No significant spinal canal or neural foraminal stenosis is present. IMPRESSION: 1. No acute fracture or malalignment of the lumb ar spine. 2. Moderate degenerative abby nge at L4-L5 in part secondary to a scoliotic curvature. There is mild to moderate spinal canal stenosis as well as moderate to severe right and pvyq-vz-aipqgdrf left neural foraminal stenosis at this level. SL: [id number] 2017-10-30 21:00:00-00:00 Patient Name: HUNTER [facility] : 1975; Age: 42 years y/o Female MR: [id number] * COMPUTED TOMOGRAPHY SCAN OF THE CERVICAL SPINE without contrast Clinical Indication: Neck pain with radiculopath y. Comparison: None TECHNIQUE: Helical CT images were obtained through the cervical spine from the skull base to the thoracic inlet utilizing a multidetector helical CT scanner. Intravenous contrast was not administered. S agittal and coronal reconstructions were provide d. CT radiation dose DLP: 494 mGy-cm FINDINGS: The prevertebral soft tissues are normal in appe arance. The other soft tissue structures are unremarkabl e. There is no evidence of frac ture, dislocation, or other acute osseous abnormality. There are very mild degenera tive changes at C5-C6 with mild disc space narrowing and minimal osteophyte formation. There are no other significant degenerative changes involving the cervical cervical spine. The spinal canal is normal in caliber. The vertebral bodies are nor mal in height. There are no compression deformities or destructive lesions. IMPRESSION: 1. Mild degenerative disc disease at C5-C6. 2. No other significant osseous abnormalities ar e seen. 3. If there is a radiculopat hy or myelopathy or persistent symptoms, magnetic resonance imaging of the cervical spine (if not contraindicated) is suggested. 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 TECHNIQUE: Volumetric CT acq uisition of the lumbar spine without contrast. Axial, sagittal and coronal reconstructions. CT Radiation Dose: DLP = 794.05 mGy-cm. FINDINGS: The normal lumbar lordosis i s preserved. No abnormalities in sagittal alignment are identified. Levoscoliotic curvature of the lower lumbar spine is visualized. The vertebral body heights are maintained , without evidence for fract ure or malalignment. Evaluation of the spinal canal and distal nerve roots is limited on this noncontrast CT examination. Degenerative changes of the lumbar spine are as follows: L1-L2: No significant degene rative change, without spinal canal or neural foraminal stenosis. L2-L3: No significant degene rative change, without spinal canal or neural foraminal stenosis. L3-L4: Mild facet arthropath y and hypertrophy of the ligamentum flavum. There is mild spinal canal stenosis without evidence for neural foraminal stenosis. L4-L5: Moderate disc space n arrowing with a diffuse disc bulge, facet arthropathy, and hypertrophy of the ligamentum flavum. There is mild to moderate spinal canal stenosis as well as moderate to severe right and ehof-jw-kpfbtcle left neural foramina l stenosis. L5-S1: Mild facet arthropath y is visualized. No significant spinal canal or neural foraminal stenosis is present. IMPRESSION: 1. No acute fracture or malalignment of the lumb ar spine. 2. Moderate degenerative abby nge at L4-L5 in part secondary to a scoliotic curvature. There is mild to moderate spinal canal stenosis as well as moderate to severe right and cied-dv-scexfeli left neural foraminal stenosis at this level. SL: [id number] 2017-10-30 21:00:00-00:00 Patient Name: HUNTER VÁZQUEZ [facility] : 1975; Age: 42 years y/o Female MR: [id number] * COMPUTED TOMOGRAPHY SCAN OF THE CERVICAL SPINE without contrast Clinical Indication: Neck pain with radiculopath y. Comparison: None TECHNIQUE: Helical CT images were obtained through the cervical spine from the skull base to the thoracic inlet utilizing a multidetector helical CT scanner. Intravenous contrast was not administered. S agittal and coronal reconstructions were provide d. CT radiation dose DLP: 494 mGy-cm FINDINGS: The prevertebral soft tissues are normal in appe arance. The other soft tissue structures are unremarkabl e. There is no evidence of frac ture, dislocation, or other acute osseous abnormality. There are very mild degenera tive changes at C5-C6 with mild disc space narrowing and minimal osteophyte formation. There are no other significant degenerative changes involving the cervical cervical spine. The spinal canal is normal in caliber. The vertebral bodies are nor mal in height. There are no compression deformities or destructive lesions. IMPRESSION: 1. Mild degenerative disc disease at C5-C6. 2. No other significant osseous abnormalities ar e seen. 3. If there is a radiculopat hy or myelopathy or persistent symptoms, magnetic resonance imaging of the cervical spine (if not contraindicated) is suggested. 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 TECHNIQUE: Volumetric CT acq uisition of the lumbar spine without contrast. Axial, sagittal and coronal reconstructions. CT Radiation Dose: DLP = 794.05 mGy-cm. FINDINGS: The normal lumbar lordosis i s preserved. No abnormalities in sagittal alignment are identified. Levoscoliotic curvature of the lower lumbar spine is visualized. The vertebral body heights are maintained , without evidence for fract ure or malalignment. Evaluation of the spinal canal and distal nerve roots is limited on this noncontrast CT examination. Degenerative changes of the lumbar spine are as follows: L1-L2: No significant degene rative change, without spinal canal or neural foraminal stenosis. L2-L3: No significant degene rative change, without spinal canal or neural foraminal stenosis. L3-L4: Mild facet arthropath y and hypertrophy of the ligamentum flavum. There is mild spinal canal stenosis without evidence for neural foraminal stenosis. L4-L5: Moderate disc space n arrowing with a diffuse disc bulge, facet arthropathy, and hypertrophy of the ligamentum flavum. There is mild to moderate spinal canal stenosis as well as moderate to severe right and vyra-yv-htjyjgip left neural foramina l stenosis. L5-S1: Mild facet arthropath y is visualized. No significant spinal canal or neural foraminal stenosis is present. IMPRESSION: 1. No acute fracture or malalignment of the lumb ar spine. 2. Moderate degenerative abby nge at L4-L5 in part secondary to a scoliotic curvature. There is mild to moderate spinal canal stenosis as well as moderate to severe right and puxh-at-lxnlhcqt left neural foraminal stenosis at this level. SL: [id number] 2017-10-30 21:00:00-00:00 Patient Name: HUNTER [facility] : 1975; Age: 42 years y/o Female MR: [id number] * COMPUTED TOMOGRAPHY SCAN OF THE CERVICAL SPINE without contrast Clinical Indication: Neck pain with radiculopath y. Comparison: None TECHNIQUE: Helical CT images were obtained through the cervical spine from the skull base to the thoracic inlet utilizing a multidetector helical CT scanner. Intravenous contrast was not administered. S agittal and coronal reconstructions were provide d. CT radiation dose DLP: 494 mGy-cm FINDINGS: The prevertebral soft tissues are normal in appe arance. The other soft tissue structures are unremarkabl e. There is no evidence of frac ture, dislocation, or other acute osseous abnormality. There are very mild degenera tive changes at C5-C6 with mild disc space narrowing and minimal osteophyte formation. There are no other significant degenerative changes involving the cervical cervical spine. The spinal canal is normal in caliber. The vertebral bodies are nor mal in height. There are no compression deformities or destructive lesions. IMPRESSION: 1. Mild degenerative disc disease at C5-C6. 2. No other significant osseous abnormalities ar e seen. 3. If there is a radiculopat hy or myelopathy or persistent symptoms, magnetic resonance imaging of the cervical spine (if not contraindicated) is suggested. 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 TECHNIQUE: Volumetric CT acq uisition of the lumbar spine without contrast. Axial, sagittal and coronal reconstructions. CT Radiation Dose: DLP = 794.05 mGy-cm. FINDINGS: The normal lumbar lordosis i s preserved. No abnormalities in sagittal alignment are identified. Levoscoliotic curvature of the lower lumbar spine is visualized. The vertebral body heights are maintained , without evidence for fract ure or malalignment. Evaluation of the spinal canal and distal nerve roots is limited on this noncontrast CT examination. Degenerative changes of the lumbar spine are as follows: L1-L2: No significant degene rative change, without spinal canal or neural foraminal stenosis. L2-L3: No significant degene rative change, without spinal canal or neural foraminal stenosis. L3-L4: Mild facet arthropath y and hypertrophy of the ligamentum flavum. There is mild spinal canal stenosis without evidence for neural foraminal stenosis. L4-L5: Moderate disc space n arrowing with a diffuse disc bulge, facet arthropathy, and hypertrophy of the ligamentum flavum. There is mild to moderate spinal canal stenosis as well as moderate to severe right and hptj-tw-ruhdechq left neural foramina l stenosis. L5-S1: Mild facet arthropath y is visualized. No significant spinal canal or neural foraminal stenosis is present. IMPRESSION: 1. No acute fracture or malalignment of the lumb ar spine. 2. Moderate degenerative abby nge at L4-L5 in part secondary to a scoliotic curvature. There is mild to moderate spinal canal stenosis as well as moderate to severe right and ppmx-ax-tttgqhbi left neural foraminal stenosis at this level. SL: [id number] 2017-10-30 21:00:00-00:00 Patient Name: HUNTER VÁZQUEZ [facility] : 1975; Age: 42 years y/o Female MR: [id number] * COMPUTED TOMOGRAPHY SCAN OF THE CERVICAL SPINE without contrast Clinical Indication: Neck pain with radiculopath y. Comparison: None TECHNIQUE: Helical CT images were obtained through the cervical spine from the skull base to the thoracic inlet utilizing a multidetector helical CT scanner. Intravenous contrast was not administered. S agittal and coronal reconstructions were provide d. CT radiation dose DLP: 494 mGy-cm FINDINGS: The prevertebral soft tissues are normal in appe arance. The other soft tissue structures are unremarkabl e. There is no evidence of frac ture, dislocation, or other acute osseous abnormality. There are very mild degenera tive changes at C5-C6 with mild disc space narrowing and minimal osteophyte formation. There are no other significant degenerative changes involving the cervical cervical spine. The spinal canal is normal in caliber. The vertebral bodies are nor mal in height. There are no compression deformities or destructive lesions. IMPRESSION: 1. Mild degenerative disc disease at C5-C6. 2. No other significant osseous abnormalities ar e seen. 3. If there is a radiculopat hy or myelopathy or persistent symptoms, magnetic resonance imaging of the cervical spine (if not contraindicated) is suggested. 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 TECHNIQUE: Volumetric CT acq uisition of the lumbar spine without contrast. Axial, sagittal and coronal reconstructions. CT Radiation Dose: DLP = 794.05 mGy-cm. FINDINGS: The normal lumbar lordosis i s preserved. No abnormalities in sagittal alignment are identified. Levoscoliotic curvature of the lower lumbar spine is visualized. The vertebral body heights are maintained , without evidence for fract ure or malalignment. Evaluation of the spinal canal and distal nerve roots is limited on this noncontrast CT examination. Degenerative changes of the lumbar spine are as follows: L1-L2: No significant degene rative change, without spinal canal or neural foraminal stenosis. L2-L3: No significant degene rative change, without spinal canal or neural foraminal stenosis. L3-L4: Mild facet arthropath y and hypertrophy of the ligamentum flavum. There is mild spinal canal stenosis without evidence for neural foraminal stenosis. L4-L5: Moderate disc space n arrowing with a diffuse disc bulge, facet arthropathy, and hypertrophy of the ligamentum flavum. There is mild to moderate spinal canal stenosis as well as moderate to severe right and iyjw-du-xepykodp left neural foramina l stenosis. L5-S1: Mild facet arthropath y is visualized. No significant spinal canal or neural foraminal stenosis is present. IMPRESSION: 1. No acute fracture or malalignment of the lumb ar spine. 2. Moderate degenerative abby nge at L4-L5 in part secondary to a scoliotic curvature. There is mild to moderate spinal canal stenosis as well as moderate to severe right and jgks-en-eclxjuww left neural foraminal stenosis at this level. PEPPER: [id number] 2017-10-30 21:00:00-:00 Patient Name: [facility] : 1975; Age: 42 years y/o Female MR: [id number] * COMPUTED TOMOGRAPHY SCAN OF THE CERVICAL SPINE without contrast Clinical Indication: Neck pain with radiculopath y. Comparison: None TECHNIQUE: Helical CT images were obtained through the cervical spine from the skull base to the thoracic inlet utilizing a multidetector helical CT scanner. Intravenous contrast was not administered. S agittal and coronal reconstructions were provide d. CT radiation dose DLP: 494 mGy-cm FINDINGS: The prevertebral soft tissues are normal in appe arance. The other soft tissue structures are unremarkabl e. There is no evidence of frac ture, dislocation, or other acute osseous abnormality. There are very mild degenera tive changes at C5-C6 with mild disc space narrowing and minimal osteophyte formation. There are no other significant degenerative changes involving the cervical cervical spine. The spinal canal is normal in caliber. The vertebral bodies are nor mal in height. There are no compression deformities or destructive lesions. IMPRESSION: 1. Mild degenerative disc disease at C5-C6. 2. No other significant osseous abnormalities ar e seen. 3. If there is a radiculopat hy or myelopathy or persistent symptoms, magnetic resonance imaging of the cervical spine (if not contraindicated) is suggested. 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 TECHNIQUE: Volumetric CT acq uisition of the lumbar spine without contrast. Axial, sagittal and coronal reconstructions. CT Radiation Dose: DLP = 794.05 mGy-cm. FINDINGS: The normal lumbar lordosis i s preserved. No abnormalities in sagittal alignment are identified. Levoscoliotic curvature of the lower lumbar spine is visualized. The vertebral body heights are maintained , without evidence for fract ure or malalignment. Evaluation of the spinal canal and distal nerve roots is limited on this noncontrast CT examination. Degenerative changes of the lumbar spine are as follows: L1-L2: No significant degene rative change, without spinal canal or neural foraminal stenosis. L2-L3: No significant degene rative change, without spinal canal or neural foraminal stenosis. L3-L4: Mild facet arthropath y and hypertrophy of the ligamentum flavum. There is mild spinal canal stenosis without evidence for neural foraminal stenosis. L4-L5: Moderate disc space n arrowing with a diffuse disc bulge, facet arthropathy, and hypertrophy of the ligamentum flavum. There is mild to moderate spinal canal stenosis as well as moderate to severe right and ktiu-vt-[id number] left neural foramina l stenosis. L5-S1: Mild facet arthropath y is visualized. No significant spinal canal or neural foraminal stenosis is present. IMPRESSION: 1. No acute fracture or malalignment of the lumb ar spine. 2. Moderate degenerative abby nge at L4-L5 in part secondary to a scoliotic curvature. There is mild to moderate spinal canal stenosis as well as moderate to severe right and [id number] left neural foraminal stenosis at this level. SL: [id number] 2013-03-05 15:25:27-00:00 - [facility] [place] SPEC[facility] RIGHT BREAST: 03/05/2013 CLINICAL: Rt Breast Mass. Correlation is made to exams dated: 03/05/2013 localization - [facility] and 01/12/2013 mammogram - [facility]. A surgical and wire localiz ation specimen was imaged for the 2 cm previous biopsy site located in the right breast at 2 o'clock middle depth. This was described on the previous mammography, ultrasound and biopsy reports. IMPRESSION: SPECIMEN BENIGN The imaged specimen includes the lesion, a biopsy clip and the distal portion of the localization wire. The specimen shows characteristics of the mammographic and sonographic findings. Pathology indicates benign papilloma (PA). A screening mammogram in one year is recommended . Jeimy Garg M.D. [facility]/penrad:04/07/2013 09:51:46 Contour Stitcher: Leonor FOX)(M), [facility] 2013-03-05 15:25:27-00:00 - BREAST SPECIMEN SURGERY [facility] SPECIMEN RIGHT BREAST: 03/05/2013 CLINICAL: Rt Breast Mass. Correlation is made to exams dated: 03/05/2013 localization - [facility] and 01/12/2013 mammogram - [facility]. A surgical and wire localiz ation specimen was imaged for the 2 cm previous biopsy site located in the right breast at 2 o'clock middle depth. This was described on the previous mammography, ultrasound and biopsy reports. IMPRESSION: SPECIMEN BENIGN The imaged specimen includes the lesion, a biopsy clip and the distal portion of the localization wire. The specimen shows characteristics of the mammographic and sonographic findings. Pathology indicates benign papilloma (PA). A screening mammogram in one year is recommended . Jeimy Garg M.D. [facility]/penrad:04/07/2013 09:51:46 Contour Stitcher: Leonor FOX)(M), [facility] 2013-03-05 15:25:27-00:00 - BREAST SPECIMEN SURGERY [facility] SPECIMEN RIGHT BREAST: 03/05/2013 CLINICAL: Rt Breast Mass. Correlation is made to exams dated: 03/05/2013 localization - [facility] and 01/12/2013 mammogram - [facility]. A surgical and wire localiz ation specimen was imaged for the 2 cm previous biopsy site located in the right breast at 2 o'clock middle depth. This was described on the previous mammography, ultrasound and biopsy reports. IMPRESSION: SPECIMEN BENIGN The imaged specimen includes the lesion, a biopsy clip and the distal portion of the localization wire. The specimen shows characteristics of the mammographic and sonographic findings. Pathology indicates benign papilloma (PA). A screening mammogram in one year is recommended . Jeimy colemanb/penrad:04/07/2013 09:51:46 Contour Stitcher: Leonor FOX)(M), [facility] 2013-03-05 15:25:27-00:00 - BREAST SPECIMEN SURGERY [facility] SPECIMEN RIGHT BREAST: 03/05/2013 CLINICAL: Rt Breast Mass. Correlation is made to exams dated: 03/05/2013 localization - [facility] and 01/12/2013 mammogram - [facility]. A surgical and wire localiz ation specimen was imaged for the 2 cm previous biopsy site located in the right breast at 2 o'clock middle depth. This was described on the previous mammography, ultrasound and biopsy reports. IMPRESSION: SPECIMEN BENIGN The imaged specimen includes the lesion, a biopsy clip and the distal portion of the localization wire. The specimen shows characteristics of the mammographic and sonographic findings. Pathology indicates benign papilloma (PA). A screening mammogram in one year is recommended . Jeimy randall/penrad:04/07/2013 09:51:46 Contour Stitcher: Leonor FOX)(M), [facility] 2013-03-05 15:25:27-00:00 - BREAST SPECIMEN SURGERY [facility] SPECIMEN RIGHT BREAST: 03/05/2013 CLINICAL: Rt Breast Mass. Correlation is made to exams dated: 03/05/2013 localization - [facility] and 01/12/2013 mammogram - [facility]. A surgical and wire localiz ation specimen was imaged for the 2 cm previous biopsy site located in the right breast at 2 o'clock middle depth. This was described on the previous mammography, ultrasound and biopsy reports. IMPRESSION: SPECIMEN BENIGN The imaged specimen includes the lesion, a biopsy clip and the distal portion of the localization wire. The specimen shows characteristics of the mammographic and sonographic findings. Pathology indicates benign papilloma (PA). A screening mammogram in one year is recommended . Jeimy colemanb/penrad:04/07/2013 09:51:46 Contour Stitcher: Leonor HUTSON(R)(Izzy), [facility] 2013-03-05 15:25:27-00:00 - BREAST SPECIMEN SURGERY [facility] SPECIMEN RIGHT BREAST: 03/05/2013 CLINICAL: Rt Breast Mass. Correlation is made to exams dated: 03/05/2013 localization - [facility] and 01/12/2013 mammogram - [facility]. A surgical and wire localiz ation specimen was imaged for the 2 cm previous biopsy site located in the right breast at 2 o'clock middle depth. This was described on the previous mammography, ultrasound and biopsy reports. IMPRESSION: SPECIMEN BENIGN The imaged specimen includes the lesion, a biopsy clip and the distal portion of the localization wire. The specimen shows characteristics of the mammographic and sonographic findings. Pathology indicates benign papilloma (PA). A screening mammogram in one year is recommended . Jeimy randall/gregoria:04/07/2013 09:51:46 Contour Stitcher: Leonor chopra RT(R)(M), [facility]
[2023-07-04 00:17] LABS: Absolute Lymphocytes (CBC) 2.1 K/uL (0.7-4.9); Hematocrit 40.8 % (36.0-45.0); MCV 86.6 fL (80-100); MPV 8.7 fL (7.6-11.3); Platelets 218 thou/uL (152-406); RBC Red Blood Cell Count 4.72 M/uL (3.86-4.86)
[2023-07-04 00:32] LABS: ALT/SGPT 32 U/L (13-56); AST/SGOT 17 U/L (15-37); Albumin 3.5 g/dL (3.4-5.0); Alkaline Phosphatase 83 U/L (45-117); BUN Blood Urea Nitrogen 9 mg/dL (7-18); Bicarbonate 27 mEq/L (21-32); Bilirubin Total 0.3 mg/dL (0.2-1.0); Glomerular Filtration Rate 77 ml/min (=/>90); Glucose Level 95 mg/dL (74-106); Magnesium 2.4 mg/dL (1.6-2.4); NT PRO-BNP 37 pg/mL (<125); Potassium 3.9 mEq/L (3.5-5.1); Sodium Level 137 mEq/L (136-145); Troponin High Sensitivity 5.5 pg/mL (<58.9)
[2023-07-04 00:34] LABS: Bilirubin Direct < 0.1 mg/dL (0-0.2); Bilirubin Indirect, Calculated ND mg/dL (0.2-0.8)
[2023-07-04] MEDS ORDERED: ASPIRIN 81 MG CHEWABLE TABLET ONE (02:31)
[2023-07-04] MEDS ORDERED: MORPHINE 4 MG/ML SYR ONE (02:32)
[2023-07-04] MEDS ORDERED: ONDANSETRON 4 MG/2 ML VIAL ONE (02:32)
--- NOTE | 2023-07-04 04:47 | EDPHYS ---
Physician Documentation [facility] Name: Tracey Friend Age: 48 yrs Sex: Female : 1975 Arrival Date: 07/03/2023 Time: 23:36 Bed 3 Private MD: Omer Panchal ED Physician Dann Clark HPI: 07/04 00:22 This 48 yrs old Female presents to ER via Unassigned with complaints of Chest Pain. kb 00:22 The patient or guardian reports chest pain that is located primarily in the anterior kb chest wall, left. Onset: 20 minute(s) ago. The pain radiates to the left arm. Associated signs and symptoms: The patient has no apparent associated signs or symptoms. The chest pain is described as sharp. Duration: The patient or guardian reports a single episode. Modifying factors: The symptoms are alleviated by nothing. the symptoms are aggravated by deep breath, movement. Severity of pain: At its worst the pain was moderate in the emergency department the pain is unchanged. The patient has not experienced similar symptoms in the past. The patient has not recently seen a physician. MD UROLOGIST: 01:01 LMP N/A - Hysterectomy vc1 Historical: - Allergies: 07/03 23:41 NKA; vc1 - PMHx: 23:41 Diabetes - NIDDM; Hypertension; Septic Emboli Nodules; vc1 - PSHx: 23:41 Total abdominal hysterectomy; Still has ovaries; Cholecystectomy; vc1 07/04 01:03 XLIF; vc1 - Immunization history:: Client reports having NOT received the Covid vaccine. - Social history:: Smoking status: Patient/guardian denies using tobacco, Stopped _ months ago 1.5. ROS: 00:21 Constitutional: Negative for fever, chills, and weight loss. kb 00:21 Cardiovascular: Positive for chest pain, Negative for edema, orthopnea, palpitations, paroxysmal nocturnal dyspnea. 00:21 All other systems are negative. Exam: 00:20 Constitutional: This is a well developed, well nourished patient who is awake, alert, kb and in no acute distress. Head/Face: Normocephalic, atraumatic. ENT: Moist Mucous membranes Cardiovascular: Regular rate and rhythm with a normal S1 and S2. No gallops, murmurs, or rubs. No pulse deficits. Respiratory: Respirations even and unlabored. No increased work of breathing. Talking in full sentences Abdomen/GI: Soft, non-tender. No distention Skin: Warm, dry with normal turgor. Normal color. MS/ Extremity: Pulses equal, no cyanosis. Neurovascular intact. Full, normal range of motion. Neuro: Awake and alert, GCS 15, oriented to person, place, time, and situation. Moves all extremities. Normal gait. 00:20 ECG was reviewed by the Attending Physician. Vital Signs: 00:14 BP 109 / 58; Pulse 74; Resp 18; Pulse Ox 100% on R/A; kd3 01:00 BP 106 / 54; Pulse 74; Resp 19; Pulse Ox 100% ; kd3 01:19 BP 115 / 68; Pulse 71; Resp 16; Pulse Ox 97% on R/A; kd3 01:58 BP 128 / 75; Pulse 63; Resp 18; Pulse Ox 100% on R/A; kd3 03:09 BP 120 / 61; Pulse 75; Resp 19; Pulse Ox 100% on R/A; kd3 04:52 BP 104 / 68; Pulse 76; Resp 18; Pulse Ox 100% on R/A; kd3 MDM: 07/03 23:39 Patient medically screened. kb 07/04 00:23 Differential diagnosis: abnormal EKG, acute myocardial infarction, pleurisy, pneumonia, kb pulmonary embolus. Data reviewed: vital signs, nurses notes. 01:50 ED course: HEART score 2. kb 02:13 The patient was given aspirin in the Emergency Department. Consideration of kb Admission/Observation Escalation of care including admission/observation considered. admission considered for chest pain. Will review a 3 hour troponin and determine disposition. Transition of care: After a detail discussion of the patient's case, care is transferred to Dann Clark MD. 07/03 23:41 Order name: Basic Metabolic Panel; Complete Time: 00:36 kb 07/03 23:41 Order name: CBC with Diff; Complete Time: 00:29 kb 07/03 23:41 Order name: D-Dimer; Complete Time: 00:20 kb 07/03 23:41 Order name: LFT's; Complete Time: 00:36 kb 07/03 23:41 Order name: Magnesium; Complete Time: 00:36 kb 07/03 23:41 Order name: NT PRO-BNP; Complete Time: 00:36 kb 07/03 23:41 Order name: Troponin HS; Complete Time: 00:36 kb 07/04 03:23 Order name: Troponin High Sensitivity; Complete Time: 03:56 EDMS 07/03 23:41 Order name: XRAY Chest (1 view) kb 07/04 00:20 Order name: CT Chest For PE Angio kb 07/03 23:41 Order name: EKG; Complete Time: 23:42 kb 07/04 02:11 Order name: EKG; Complete Time: 02:11 kb 07/03 23:41 Order name: Cardiac monitoring; Complete Time: 23:50 kb 07/03 23:41 Order name: EKG - Nurse/Tech; Complete Time: 23:50 kb 07/03 23:41 Order name: IV Saline Lock; Complete Time: 00:19 kb 07/03 23:41 Order name: Labs collected and sent; Complete Time: 00:19 kb 07/03 23:41 Order name: O2 Per Protocol; Complete Time: 23:50 kb 07/03 23:41 Order name: O2 Sat Monitoring; Complete Time: 23:50 kb 07/04 02:11 Order name: EKG - Nurse/Tech; Complete Time: 02:40 kb 07/04 02:30 Order name: Misc. Order: Repeat troponin at 0300; Complete Time: 03:22 vc1 EC:20 Rate is 78 beats/min. Rhythm is regular. QRS [place] is Normal. [place] interval is normal at kb 138 msec. QRS interval is normal at 84 msec. QT interval is normal at 465 msec. Administered Medications: 02:25 Drug: Aspirin PO Chewable Tablet 324 mg Route: PO; lg3 02:40 Follow up: Response: No adverse reaction lg3 02:25 Drug: morphine IVP or IV 4 mg Route: IVP; Infused Over: 4 mins; Site: right antecubital;lg3 02:40 Follow up: Response: No adverse reaction lg3 02:26 Drug: Ondansetron IVP 4 mg Route: IVP; Site: right antecubital; lg3 02:40 Follow up: Response: No adverse reaction lg3 Disposition Summary: 07/04/23 04:46 Discharge Ordered Location: Home kdr Problem: new kdr Symptoms: have improved kdr Condition: Stable kdr Diagnosis - Chest pain, unspecified kdr Followup: kdr - With: Omer Panchal MD - When: 2 - 3 days - Reason: If symptoms return, Further diagnostic work-up, Recheck today's complaints, Continuance of care, Re-evaluation by your physician Discharge Instructions: - Discharge Summary Sheet kdr - Nonspecific Chest Pain, Adult, [id number] kdr Forms: - Medication Reconciliation Form kdr - Thank You Letter kdr - Patient Portal Instructions kdr - Leadership Thank You Letter kdr Signatures: Dispatcher [employer] EDSandra Barron, LOLA-Dann sEtrada MD MD kdr Sadie Marie, RN RN lg3 Machelle Wilder RN RN vc1
--- NOTE | 2023-07-04 04:47 | ER ---
Nurse's Notes [facility] Name: Tracey Friend Age: 48 yrs Sex: Female : 1975 Arrival Date: 07/03/2023 Time: 23:36 Bed 3 Private MD: Omer Panchal Diagnosis: Chest pain, unspecified Presentation: 07/03 23:41 Chief complaint: Chief complaint: Patient states: around 11:30 I started having chest vc1 pain that radiates to the left side of my neck it feels like someone is stabbing and slicing from my chest to my neck. 23:41 Coronavirus screen: Vaccine status: Patient reports being unvaccinated. Client denies vc1 travel out of the [place] in the last 14 days. At this time, the client does not indicate any symptoms associated with coronavirus-19. Ebola Screen: Patient negative for fever greater than or equal to 101.5 degrees Fahrenheit, and additional compatible Ebola Virus Disease symptoms Patient denies exposure to infectious person. Patient denies travel to an Ebola-affected area in the 21 days before illness onset. No symptoms or risks identified at this time. Initial Sepsis Screen: Does the patient meet any 2 criteria? No. Patient's initial sepsis screen is negative. Does the patient have a suspected source of infection? No. Patient's initial sepsis screen is negative. Risk Assessment: Do you want to hurt yourself or someone else? Patient reports no desire to harm self or others. Onset of symptoms was July 03, 2023 at 23:30. 23:41 Method Of Arrival: Wheelchair vc1 23:41 Acuity: ETELVINA 3 vc1 Triage Assessment: 23:41 General: Appears in no apparent distress. uncomfortable, Behavior is cooperative, vc1 anxious. Pain: Complains of pain in mid-sternal area Pain radiates to face and left sternocleidomastoid Pain currently is 6 out of 10 on a pain scale. at worst was 10 out of 10 on a pain scale. Quality of pain is described as heavy, stabbing. EENT: No deficits noted. No signs and/or symptoms were reported regarding the EENT system. Neuro: Level of Consciousness is awake, alert, obeys commands, Oriented to person, place, time, situation, Appropriate for age. Cardiovascular: Reports chest pain, Chest pain is described as severe, "worst pain of my life", Pain is 10 out of 10 on a pain scale. quality is heaviness, stabbing, radiates to left neck began 30 minutes prior to arrival episodes are continuous. Respiratory: Airway is patent Respiratory effort is even, unlabored, Respiratory pattern is regular, symmetrical. GI: No deficits noted. No signs and/or symptoms were reported involving the gastrointestinal system. : No deficits noted. No signs and/or symptoms were reported regarding the genitourinary system. Derm: No deficits noted. No signs and/or symptoms reported regarding the dermatologic system. Musculoskeletal: No deficits noted. No signs and/or symptoms reported regarding the musculoskeletal system. 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 - Social history:: Smoking status: Patient/guardian denies using tobacco, Stopped _ months ago 1.5. Screenin/16 23:41 [facility] ED Fall Risk Assessment (Adult) History of falling in the last 3 months, vc1 including since admission No falls in past 3 months (0 pts) Confusion or Disorientation No (0 pts) Intoxicated or Sedated No (0 pts) Impaired Gait No (0 pts) Mobility Assist Device Used No (0 pt) Altered Elimination No (0 pt) Score/Fall Risk Level 0 - 2 = Low Risk Oriented to surroundings, Maintained a safe environment, Educated pt \\T\\ family on fall prevention, incl call for assistance when getting out of bed. Abuse screen: Denies threats or abuse. Nutritional screening: No deficits noted. Tuberculosis screening: No symptoms or risk factors identified. Assessment: 07/04 00:00 Reassessment: See triage assessment. vc1 01:01 General: Appears uncomfortable, Behavior is calm, cooperative. Pain: Pain began kd3 gradually. Neuro: Level of Consciousness is awake, alert, obeys commands, Oriented to person, place, time, situation. Cardiovascular: Patient's skin is warm and dry. Respiratory: Airway is patent Trachea midline Respiratory effort is even, unlabored, Respiratory pattern is regular, symmetrical. 02:29 Reassessment: Patient appears in no apparent distress at this time. No changes from lg3 previously documented assessment. Patient and/or family updated on plan of care and expected duration. Pain level reassessed. Patient is alert, oriented x 3, equal unlabored respirations, skin warm/dry/pink. Patient states feeling better. 04:52 General: Appears in no apparent distress. Behavior is calm, cooperative. kd3 Vital Signs: 00:14 BP 109 / 58; Pulse 74; Resp 18; Pulse Ox 100% on R/A; kd3 01:00 BP 106 / 54; Pulse 74; Resp 19; Pulse Ox 100% ; kd3 01:19 BP 115 / 68; Pulse 71; Resp 16; Pulse Ox 97% on R/A; kd3 01:58 BP 128 / 75; Pulse 63; Resp 18; Pulse Ox 100% on R/A; kd3 03:09 BP 120 / 61; Pulse 75; Resp 19; Pulse Ox 100% on R/A; kd3 04:52 BP 104 / 68; Pulse 76; Resp 18; Pulse Ox 100% on R/A; kd3 ED Course: 07/03 23:38 Patient arrived in ED. mr 23:38 Omer Panchal MD is Private Physician. mr 23:39 Sandra Isidro FNP-C is [facility]. kb 23:39 Dann Clark MD is Attending Physician. kb 23:41 Arm band placed on left wrist. vc1 23:41 Patient has correct armband on for positive identification. Placed in gown. Bed in low vc1 position. Call light in reach. Client placed on continuous cardiac and pulse oximetry monitoring. NIBP monitoring applied. 17 00:06 Inserted saline lock: 20 gauge in right forearm, using aseptic technique. Blood kl collected. 00:10 XRAY Chest (1 view) In Process Unspecified. EDMS 00:14 Joseline Coreas, RN is Primary Nurse. kd3 00:55 Triage completed. vc1 01:01 Patient maintains SpO2 saturation greater than 95% on room air. vc1 01:02 No provider procedures requiring assistance completed. kd3 01:02 Provided Education on: . kd3 01:15 CT Chest For PE Angio In Process Unspecified. EDMS 04:45 Omer Panchal MD is Referral Physician. kdr 04:53 IV discontinued, intact, bleeding controlled, No redness/swelling at site. Pressure kd3 dressing applied. Administered Medications: 02:25 Drug: Aspirin PO Chewable Tablet 324 mg Route: PO; lg3 02:40 Follow up: Response: No adverse reaction lg3 02:25 Drug: morphine IVP or IV 4 mg Route: IVP; Infused Over: 4 mins; Site: right antecubital;lg3 02:40 Follow up: Response: No adverse reaction lg3 02:26 Drug: Ondansetron IVP 4 mg Route: IVP; Site: right antecubital; lg3 02:40 Follow up: Response: No adverse reaction lg3 Medication: 01:01 VIS not applicable for this client. vc1 Outcome: 04:46 Discharge ordered by . kdr 04:52 Discharged to home ambulatory. kd3 04:52 Condition: stable 04:52 Discharge instructions given to patient, family, Instructed on discharge instructions, follow up and referral plans. Demonstrated understanding of instructions, follow-up care. 04:53 Patient left the ED. kd3 Signatures: Dispatcher [employer] EDWY Sandra Isidro, GRAILS WEB APPLICATION DEVELOPER-C GRAILS WEB APPLICATION DEVELOPER-Ckb Chayito Reddy, RN RN Dann Mcgill MD MD kdr Rivera, Mary mr Gibson, Lacie, RN RN lg3 Doucette, Kyli, RN RN kd3 Machelle Wilder RN RN vc1 Corrections: (The following items were deleted from the chart) 00:55 00:06 Chief complaint: vc1 vc1
[2023-07-04 05:20] VITALS: O2SAT 100
[2023-07-04 05:23] VITALS: BP 104/68
--- NOTE | 2023-07-04 15:32 | RAD REPORT ---
EXAM DESCRIPTION: RAD - Chest Single View - 07/04/2023 12:08 am CLINICAL HISTORY: CHEST PAIN COMPARISON: None. TECHNIQUE: XR CHEST 1 VIEW 07/03/2023 11:41 PM CDT FINDINGS: Cardiac silhouette is normal in size. Lungs are clear without consolidation, atelectasis, mass or edema. There is no pleural effusion. There is no pneumothorax. There are no acute osseous fin dings. IMPRESSION: Clear lungs. Electronically signed by: Mayur Rincon MD 07/04/2023 12:21 AM CDT Due to temporary technical issues with the PACS/Fluency reporting system, reports are being signed by the in house radiologists without review as a courtesy to insure prompt reporting. The interpreting radiologist is fully responsible for the content of the report.
--- NOTE | 2023-07-04 16:06 | RAD REPORT ---
EXAM DESCRIPTION: CT - Chest For Pe Angio - 07/04/2023 1:13 am CLINICAL HISTORY: CHEST PAIN COMPARISON: None. TECHNIQUE: XR CHEST 1 VIEW 07/03/2023 11:41 PM CDT FINDINGS: Cardiac silhouette is normal in size. Lungs are clear without consolidation, atelectasis, mass or edema. There is no pleural effusion. There is no pneumothorax. There are no acute osseous fin dings. IMPRESSION: Clear lungs. Electronically signed by: Mayur Rincon MD 07/04/2023 12:21 AM CDT Due to temporary technical issues with the PACS/Fluency reporting system, reports are being signed by the in house radiologists without review as a courtesy to insure prompt reporting. The interpreting radiologist is fully responsible for the content of the report.
--- NOTE | 2023-07-04 17:28 | EKG ---
Test Date: 2023-07-03 Test Time: 23:50:22 Concrete Floater: RIGO MEASUREMENT RESULTS: Intervals: Rate: 78 MO: 138 QRSD: 84 QT: 408 QTc: 465 Flanagan: P: 39 MO: 138 QRS: -40 T: 15 INTERPRETIVE STATEMENTS: Normal sinus rhythm Left axis deviation Minimal voltage criteria for LVH, may be normal variant Possible Anterior infarct, age undetermined Abnormal ECG No previous ECG available for comparison Electronically Signed On 07-04-23 17:27:11 CDT by Keith Gilbert
--- NOTE | 2023-07-04 17:28 | EKG ---
Test Date: 2023-07-04 Test Time: 02:34:47 Customer Support Analyst: DANIELA MEASUREMENT RESULTS: Intervals: Rate: 67 MD: 162 QRSD: 88 QT: 452 QTc: 477 [place]: P: 55 MD: 162 QRS: -42 T: 24 INTERPRETIVE STATEMENTS: Normal sinus rhythm Left axis deviation Left ventricular hypertrophy Abnormal ECG Compared to ECG 07/03/2023 23:50:22 Myocardial infarct finding no longer present Electronically Signed On 07-04-23 17:26:56 CDT by Keith Gilbert
== END 2023-07-04 04:53 | disposition home or self-care (01) ==
LOC: ER 23:36
DX: R07.89 Other chest pain (principal); I10 Essential (primary) hypertension
CPT/HCPCS: 36415; 71045; 71275; 80048; 80076; 83735; 83880; 84484; 85025; 85379; 93005; J2405; Q9967